=== PATIENT | male | born 1945 | race Caucasian/White ===

== ENCOUNTER 2019-06-21 12:28 | Inpatient (IN) ==
--- NOTE | 2019-06-21 12:43 | Emergency Department Note ---
Altered Mental Status HPI - General Chief Complaint: Altered Mental Status Stated Complaint: Reduced LOC Time Seen by Provider: 06/21/19 12:32 Source: patient Mode of arrival: ambulatory Limitations: no limitations - History of Present Illness HPI Narrative: 74-year-old male with known history of dementia comes in from [facility] ([facility]for 3 weeks of altered mental status-decreased level of consciousness. He is currently getting doxycycline for cellulitis of the right foot. I am unable to get any meaningful history or review of systems from this patient-is very difficult to arouse but is breathing on his own with adequate heartbeat. He was able to answer one question for me after I did a sternal rub to wake him up but the answer was nonsensical. He is also on Depakote and Ativan. Medical records indicate that he is an elopement risk and does normally walk - Related Data Home Medications Medication Instructions Recorded Confirmed Acetaminophen [Non-Aspirin] 650 mg PO Q4HP PRN 06/21/19 06/21/19 Bisacodyl 10 mg RC PRN PRN 06/21/19 06/21/19 Divalproex Sodium [Depakote] 500 mg PO TID 06/21/19 06/21/19 Docusate Sodium [Colace] 100 mg PO BID 06/21/19 06/21/19 Docusate Sodium [Colace] 100 mg PO DAILYP PRN 06/21/19 06/21/19 Donepezil [Aricept] 5 mg PO HS 06/21/19 06/21/19 Doxycycline Hyclate [Morgidox] 100 mg PO BID 06/21/19 06/21/19 Ibuprofen [Advil] 400 mg PO Q6 PRN 06/21/19 06/21/19 LORazepam [Ativan] 1 mg PO BID 06/21/19 06/21/19 Magnesium Hydroxide [Milk of 30 ml PO DAILYP PRN 06/21/19 06/21/19 Magnesia] Multivitamin,Therapeutic [Thera] 1 tab PO DAILY 06/21/19 06/21/19 oxyCODONE HCL [Oxycodone HCl] 5 mg PO BID 06/21/19 06/21/19 traZODone HCL [Trazodone HCl] 50 mg PO HS 06/21/19 06/21/19 Allergies Allergy/AdvReac Type Severity Reaction Status Date / Time No Known Drug Allergies Allergy Unverified 06/21/19 12:42 Review of Systems Limitations: ROS unobtainable due to patients medical condition Past Medical History - Past Medical History Attestation: Yes: The following information was validated with the patient. [facility] Narrative: From records sent from the nursing facility he does have chronic constipation dementia with behavioral issues cellulitis of the right foot. I do not see record of diabetes or heart issues Source: old records reviewed - Social History smoking status: Former smoker Physical Exam No acute distress sleeping. Very difficult to arouse. I pried open his eyes manually-he does have some crusty discharge around the right eye but the conjunctiva looks clear bilaterally. Extraocular movements are intact I do not see any nystagmus. Pupils are equal But are small. No nasal discharge or congestion. I cannot get him to open mouth so I can look at his throat. Neck is supple without lymphadenopathy or thyromegaly. I do not hear carotid bruit. Heart is regular rate and rhythm no murmur appreciated. Lungs are clear to auscultation bilaterally without wheezes rales rhonchi or respiratory distress. Abdomen is soft nontender nondistended. There is no peritoneal signs or guarding. Adequate bowel sounds. He does have +1 pitting edema to about the mid alonso bilaterally. There is some mild erythema to the dorsum of the right foot but I do not see evidence of abscess. I cannot get any meaningful information from him. I can get him to wake up with aggressive measures but he is nonsensical and does not respond to stimulation. The bottoms of the feet are dirty signifying that he is recently been outside walking. Additionally he has a superficial abrasion at his right proximal forearm extensor surface which does not require repair-this looks recent Limitations: no limitations Coma Scale Eye Opening: None Coma Scale Motor Response: Localizes to Pain Coma Scale Verbal Response: Inappropriate Coma Scale Total: 9 Course Vital Signs Temperature 98.1 F 06/21/19 12:30 Respiratory Rate 18 06/21/19 12:30 Blood Pressure 154/82 06/21/19 12:30 Pulse Oximetry (%) 96 06/21/19 12:30 Temperature 98.1 F 06/21/19 12:30 Pulse Rate 77 06/21/19 14:01 Respiratory Rate 22 06/21/19 12:35 Blood Pressure 137/99 06/21/19 15:03 Pulse Oximetry (%) 95 06/21/19 14:01 Altered Mental Status - Lab Data Lab results reviewed: Yes I reviewed the patient's lab results. Result diagrams: 06/21/19 12:52 06/21/19 12:52 Lab Results 06/21/19 06/21/19 06/21/19 Range/Units 12:52 12:52 12:52 WBC 8.7 (4.5-11.0) K/mcL RBC 3.64 L (4.50-5.90) M/mcL Hgb 12.0 L (13.5-16.5) g/dL Hct 35.5 L (41.0-55.0) % POC Hct 35.0 L (41.0-55.0) % MCV 97.6 (80.0-100.0) fL MCH 33.0 (26.0-34.0) pg MCHC 33.8 (31.0-36.0) g/dL RDW 13.1 (11.5-14.5) % Plt Count 284 (140-440) K/mcL MPV 8.5 (7.4-10.4) fL Gran % 82.8 H (38.0-78.0) % Lymph % (Auto) 7.5 L (15.5-49.0) % [place] % (Auto) 9.3 (1.0-12.0) % Eos % (Auto) 0.1 (0.0-7.0) % Baso % (Auto) 0.3 (0.0-2.0) % Gran # 7.2 (1.8-8.0) K/mcL Lymph # (Auto) 0.7 L (1.5-4.8) K/mcL [place] # (Auto) 0.8 (0.1-0.9) K/mcL Eos # (Auto) 0 (0.0-0.7) K/mcL Baso # (Auto) 0 (0.0-0.3) K/mcL POC PT 16.4 H (11.9-14.5) sec POC INR 1.4 H (0.9-1.2) VBG Lactic Acid (0.5-2.0) mmol/L POC Sodium 145 (133-145) mmol/L Sodium 146 H (133-145) mmol/L POC Potassium 3.7 (3.3-5.1) mmol/L Potassium 3.8 (3.3-5.1) mmol/L POC Chloride 107 (96-108) mmol/L Chloride 105 (96-108) mmol/L Carbon Dioxide 23 (22-30) mmol/L POC Total CO2 25 (22-30) mmol/L Anion Gap 18.0 H (8-16) POC BUN 38 H (8-23) mg/dl BUN 40 H (8-23) mg/dl Creatinine 1.1 (0.7-1.2) mg/dl POC Creatinine 1.1 (0.7-1.2) mg/dl GFR Calculation 65 Glucose 129 H (70-105) mg/dL POC Glucose 129 H (70-105) mg/dL Calcium 9.3 (8.6-10.4) mg/dl POC WB Ioniz Calcium 1.15 L (1.16-1.32) mmol/L Total Bilirubin 0.3 (0.0-1.0) mg/dL AST 54 H (0-37) U/l ALT 24 (0-40) U/l Alkaline Phosphatase 75 (39-117) U/L Ammonia (16-60) umol/L Total Creatine Kinase 1509 H (24-195) IU/L Troponin T (0-0.03) ng/ml NT-Pro-B Natriuret Pep (0-450) pg/ml Total Protein 7.0 (5.9-8.4) gm/dL Albumin 4.1 (3.2-5.2) gm/dL Globulin 2.9 (2.2-3.7) gm/dL Albumin/Globulin Ratio 1.4 (1.0-2.3) Urine Color Urine Appearance Urine pH (5.0-9.0) Ur Specific [place] (1.000-1.035) Urine Protein (NEG) mg/dL Urine Glucose (UA) (NEG) mg/dL Urine Ketones (NEG) mg/dL Urine Occult Blood (<0.03) mg/dL Urine Nitrate (NEG) Urine Bilirubin (NEG) mg/dL Prot Sulfosalicylic Acd (NEG) mg/dL Urine Urobilinogen (NEG) mg/dL Ur Leukocyte Esterase (NEG) /uL Urine RBC (0-1) /hpf Urine WBC (0-4) /hpf Ur Squamous Epith Cells (0-4) /hpf Urine Bacteria (0) /hpf Urine Mucus (0) /hpf Ur Culture Indicated? Urine Opiates Screen (NONDETECTED) Ur Oxycodone Screen (NONDETECTED) Urine Methadone Screen (NONDETECTED) Ur Barbiturates Screen (NONDETECTED) Valproic Acid ug/mL Valproic Acid Dose Valpro Last Dose Time Ur Phencyclidine Scrn (NONDETECTED) Ur Amphetamines Screen (NONDETECTED) U Benzodiazepines Scrn (NONDETECTED) Urine Cocaine Screen (NONDETECTED) U Marijuana (THC) Screen (NONDETECTED) Ethyl Alcohol (<0.010) gm/dl 06/21/19 06/21/19 06/21/19 Range/Units 12:52 12:52 12:52 WBC (4.5-11.0) K/mcL RBC (4.50-5.90) M/mcL Hgb (13.5-16.5) g/dL Hct (41.0-55.0) % POC Hct (41.0-55.0) % MCV (80.0-100.0) fL MCH (26.0-34.0) pg MCHC (31.0-36.0) g/dL RDW (11.5-14.5) % Plt Count (140-440) K/mcL MPV (7.4-10.4) fL Gran % (38.0-78.0) % Lymph % (Auto) (15.5-49.0) % [place] % (Auto) (1.0-12.0) % Eos % (Auto) (0.0-7.0) % Baso % (Auto) (0.0-2.0) % Gran # (1.8-8.0) K/mcL Lymph # (Auto) (1.5-4.8) K/mcL [place] # (Auto) (0.1-0.9) K/mcL Eos # (Auto) (0.0-0.7) K/mcL Baso # (Auto) (0.0-0.3) K/mcL POC PT (11.9-14.5) sec POC INR (0.9-1.2) VBG Lactic Acid 1.8 (0.5-2.0) mmol/L POC Sodium (133-145) mmol/L Sodium (133-145) mmol/L POC Potassium (3.3-5.1) mmol/L Potassium (3.3-5.1) mmol/L POC Chloride (96-108) mmol/L Chloride (96-108) mmol/L Carbon Dioxide (22-30) mmol/L POC Total CO2 (22-30) mmol/L Anion Gap (8-16) POC BUN (8-23) mg/dl BUN (8-23) mg/dl Creatinine (0.7-1.2) mg/dl POC Creatinine (0.7-1.2) mg/dl GFR Calculation Glucose (70-105) mg/dL POC Glucose (70-105) mg/dL Calcium (8.6-10.4) mg/dl POC WB Ioniz Calcium (1.16-1.32) mmol/L Total Bilirubin (0.0-1.0) mg/dL AST (0-37) U/l ALT (0-40) U/l Alkaline Phosphatase (39-117) U/L Ammonia 24 (16-60) umol/L Total Creatine Kinase (24-195) IU/L Troponin T < 0.01 (0-0.03) ng/ml NT-Pro-B Natriuret Pep (0-450) pg/ml Total Protein (5.9-8.4) gm/dL Albumin (3.2-5.2) gm/dL Globulin (2.2-3.7) gm/dL Albumin/Globulin Ratio (1.0-2.3) Urine Color Urine Appearance Urine pH (5.0-9.0) Ur Specific [place] (1.000-1.035) Urine Protein (NEG) mg/dL Urine Glucose (UA) (NEG) mg/dL Urine Ketones (NEG) mg/dL Urine Occult Blood (<0.03) mg/dL Urine Nitrate (NEG) Urine Bilirubin (NEG) mg/dL Prot Sulfosalicylic Acd (NEG) mg/dL Urine Urobilinogen (NEG) mg/dL Ur Leukocyte Esterase (NEG) /uL Urine RBC (0-1) /hpf Urine WBC (0-4) /hpf Ur Squamous Epith Cells (0-4) /hpf Urine Bacteria (0) /hpf Urine Mucus (0) /hpf Ur Culture Indicated? Urine Opiates Screen (NONDETECTED) Ur Oxycodone Screen (NONDETECTED) Urine Methadone Screen (NONDETECTED) Ur Barbiturates Screen (NONDETECTED) Valproic Acid ug/mL Valproic Acid Dose Valpro Last Dose Time Ur Phencyclidine Scrn (NONDETECTED) Ur Amphetamines Screen (NONDETECTED) U Benzodiazepines Scrn (NONDETECTED) Urine Cocaine Screen (NONDETECTED) U Marijuana (THC) Screen (NONDETECTED) Ethyl Alcohol (<0.010) gm/dl 06/21/19 06/21/19 06/21/19 Range/Units 12:52 12:52 12:52 WBC (4.5-11.0) K/mcL RBC (4.50-5.90) M/mcL Hgb (13.5-16.5) g/dL Hct (41.0-55.0) % POC Hct (41.0-55.0) % MCV (80.0-100.0) fL MCH (26.0-34.0) pg MCHC (31.0-36.0) g/dL RDW (11.5-14.5) % Plt Count (140-440) K/mcL MPV (7.4-10.4) fL Gran % (38.0-78.0) % Lymph % (Auto) (15.5-49.0) % [place] % (Auto) (1.0-12.0) % Eos % (Auto) (0.0-7.0) % Baso % (Auto) (0.0-2.0) % Gran # (1.8-8.0) K/mcL Lymph # (Auto) (1.5-4.8) K/mcL [place] # (Auto) (0.1-0.9) K/mcL Eos # (Auto) (0.0-0.7) K/mcL Baso # (Auto) (0.0-0.3) K/mcL POC PT (11.9-14.5) sec POC INR (0.9-1.2) VBG Lactic Acid (0.5-2.0) mmol/L POC Sodium (133-145) mmol/L Sodium (133-145) mmol/L POC Potassium (3.3-5.1) mmol/L Potassium (3.3-5.1) mmol/L POC Chloride (96-108) mmol/L Chloride (96-108) mmol/L Carbon Dioxide (22-30) mmol/L POC Total CO2 (22-30) mmol/L Anion Gap (8-16) POC BUN (8-23) mg/dl BUN (8-23) mg/dl Creatinine (0.7-1.2) mg/dl POC Creatinine (0.7-1.2) mg/dl GFR Calculation Glucose (70-105) mg/dL POC Glucose (70-105) mg/dL Calcium (8.6-10.4) mg/dl POC WB Ioniz Calcium (1.16-1.32) mmol/L Total Bilirubin (0.0-1.0) mg/dL AST (0-37) U/l ALT (0-40) U/l Alkaline Phosphatase (39-117) U/L Ammonia (16-60) umol/L Total Creatine Kinase (24-195) IU/L Troponin T (0-0.03) ng/ml NT-Pro-B Natriuret Pep (0-450) pg/ml Total Protein (5.9-8.4) gm/dL Albumin (3.2-5.2) gm/dL Globulin (2.2-3.7) gm/dL Albumin/Globulin Ratio (1.0-2.3) Urine Color Urine Appearance Urine pH (5.0-9.0) Ur Specific [place] (1.000-1.035) Urine Protein (NEG) mg/dL Urine Glucose (UA) (NEG) mg/dL Urine Ketones (NEG) mg/dL Urine Occult Blood (<0.03) mg/dL Urine Nitrate (NEG) Urine Bilirubin (NEG) mg/dL Prot Sulfosalicylic Acd (NEG) mg/dL Urine Urobilinogen (NEG) mg/dL Ur Leukocyte Esterase (NEG) /uL Urine RBC (0-1) /hpf Urine WBC (0-4) /hpf Ur Squamous Epith Cells (0-4) /hpf Urine Bacteria (0) /hpf Urine Mucus (0) /hpf Ur Culture Indicated? Urine Opiates Screen None detected (NONDETECTED) Ur Oxycodone Screen Suspect positive A (NONDETECTED) Urine Methadone Screen None detected (NONDETECTED) Ur Barbiturates Screen None detected (NONDETECTED) Valproic Acid 53.5 ug/mL Valproic Acid Dose Not Reportable Valpro Last Dose Time Not Reportable Ur Phencyclidine Scrn None detected (NONDETECTED) Ur Amphetamines Screen None detected (NONDETECTED) U Benzodiazepines Scrn None detected (NONDETECTED) Urine Cocaine Screen None detected (NONDETECTED) U Marijuana (THC) Screen None detected (NONDETECTED) Ethyl Alcohol < 0.010 (<0.010) gm/dl 06/21/19 06/21/19 Range/Units 12:52 12:52 WBC (4.5-11.0) K/mcL RBC (4.50-5.90) M/mcL Hgb (13.5-16.5) g/dL Hct (41.0-55.0) % POC Hct (41.0-55.0) % MCV (80.0-100.0) fL MCH (26.0-34.0) pg MCHC (31.0-36.0) g/dL RDW (11.5-14.5) % Plt Count (140-440) K/mcL MPV (7.4-10.4) fL Gran % (38.0-78.0) % Lymph % (Auto) (15.5-49.0) % [place] % (Auto) (1.0-12.0) % Eos % (Auto) (0.0-7.0) % Baso % (Auto) (0.0-2.0) % Gran # (1.8-8.0) K/mcL Lymph # (Auto) (1.5-4.8) K/mcL [place] # (Auto) (0.1-0.9) K/mcL Eos # (Auto) (0.0-0.7) K/mcL Baso # (Auto) (0.0-0.3) K/mcL POC PT (11.9-14.5) sec POC INR (0.9-1.2) VBG Lactic Acid (0.5-2.0) mmol/L POC Sodium (133-145) mmol/L Sodium (133-145) mmol/L POC Potassium (3.3-5.1) mmol/L Potassium (3.3-5.1) mmol/L POC Chloride (96-108) mmol/L Chloride (96-108) mmol/L Carbon Dioxide (22-30) mmol/L POC Total CO2 (22-30) mmol/L Anion Gap (8-16) POC BUN (8-23) mg/dl BUN (8-23) mg/dl Creatinine (0.7-1.2) mg/dl POC Creatinine (0.7-1.2) mg/dl GFR Calculation Glucose (70-105) mg/dL POC Glucose (70-105) mg/dL Calcium (8.6-10.4) mg/dl POC WB Ioniz Calcium (1.16-1.32) mmol/L Total Bilirubin (0.0-1.0) mg/dL AST (0-37) U/l ALT (0-40) U/l Alkaline Phosphatase (39-117) U/L Ammonia (16-60) umol/L Total Creatine Kinase (24-195) IU/L Troponin T (0-0.03) ng/ml NT-Pro-B Natriuret Pep 124.9 (0-450) pg/ml Total Protein (5.9-8.4) gm/dL Albumin (3.2-5.2) gm/dL Globulin (2.2-3.7) gm/dL Albumin/Globulin Ratio (1.0-2.3) Urine Color [place] Urine Appearance Clear Urine pH 5.0 (5.0-9.0) Ur Specific [place] 1.033 (1.000-1.035) Urine Protein Color interference (NEG) mg/dL Urine Glucose (UA) Negative (NEG) mg/dL Urine Ketones 80 A (NEG) mg/dL Urine Occult Blood Neg (<0.03) mg/dL Urine Nitrate Neg (NEG) Urine Bilirubin Neg (NEG) mg/dL Prot Sulfosalicylic Acd Neg (NEG) mg/dL Urine Urobilinogen Color interference (NEG) mg/dL Ur Leukocyte Esterase Neg (NEG) /uL Urine RBC 8 H (0-1) /hpf Urine WBC < 1 (0-4) /hpf Ur Squamous Epith Cells 0 (0-4) /hpf Urine Bacteria 0 (0) /hpf Urine Mucus Many A (0) /hpf Ur Culture Indicated? No Urine Opiates Screen (NONDETECTED) Ur Oxycodone Screen (NONDETECTED) Urine Methadone Screen (NONDETECTED) Ur Barbiturates Screen (NONDETECTED) Valproic Acid ug/mL Valproic Acid Dose Valpro Last Dose Time Ur Phencyclidine Scrn (NONDETECTED) Ur Amphetamines Screen (NONDETECTED) U Benzodiazepines Scrn (NONDETECTED) Urine Cocaine Screen (NONDETECTED) U Marijuana (THC) Screen (NONDETECTED) Ethyl Alcohol (<0.010) gm/dl - Radiology Data Radiology results reviewed: Yes I reviewed the patient's radiology results. CT scan of the head and chest x-ray showed no acute pathology - EKG Data EKG attestation: Yes I reviewed and interpreted this EKG., Yes There are no EKG findings of acute coronary syndrome, Yes This EKG will be read by topographical field assistant EKG results narrative: EKG shows a rate 87 sinus rhythm with flipped T waves in lead III Disposition Pt seen by [facility]/PA only: No Clinical Impression: Altered mental status Qualifiers: Altered mental status type: somnolence Qualified Code(s): R40.0 - Somnolence Rhabdomyolysis Qualifiers: Rhabdomyolysis type: non-traumatic Qualified Code(s): M62.82 - Rhabdomyolysis Dementia Qualifiers: Dementia type: unspecified type Dementia behavioral disturbance: with behavioral disturbance Qualified Code(s): F03.91 - Unspecified dementia with behavioral disturbance Narcotic overdose Qualifiers: Encounter type: initial encounter Injury intent: accidental or unintentional Qualified Code(s): T40.601A - Poisoning by unspecified narcotics, accidental (unintentional), initial encounter Summary: Acutely somnolent and barely responsive with a GCS of 9. He is breathing on his own with an adequate heartbeat. Suspect stroke versus acute infection like pneumonia or UTI versus alcohol withdrawal versus narcotic or Depakote overdose. Work-up ordered. Trial of Narcan. IV fluids Narcan 0.2 mg did not help much but this is equivocal. We were able to place Weeks catheter but urinalysis was negative. Urine is dark brown. He did respond to blood draw but again was nonsensical but purposely moved. We will try a higher dose of Narcan 0.4 mg. Was negative for acute pathology. UDS is positive for oxycodone. Valproic acid level was low therapeutic. Labs not consistent with sepsis, neither or vitals. However his CK is elevated consistent with possible rhabdo. His exam shows possible fluid overload with some lymphedema. We will give dose of Lasix Second dose of Narcan seem to wake him up again but they were able to redirect him. He continues to be otherwise stable We will discuss case with hospitalist as he will require IV fluids for rhabdomyolysis and monitoring of his altered mental status. Dr. Wallace accepted patient for further care and evaluation here Disposition: Xfer As Inpt ([facility]) Condition: Fair Referrals: Margret Wright MD [Physician] -
[2019-06-21] MEDS ORDERED: NALOXONE HCL 0.4 MG/ML VIAL IV ONE ×2 (12:45→14:10)
[2019-06-21] MEDS ORDERED: 0.9 % SODIUM CHLORIDE 1,000 ML IV SCH ×3 (12:45→15:45)
[2019-06-21 13:16] LABS: POC Blood Urea Nitrogen 38 mg/dl (8-23); POC CO2 25 mmol/L (22-30); POC Calcium, Ionized 1.15 mmol/L (1.16-1.32); POC Chloride 107 mmol/L (96-108); POC Creatinine 1.1 mg/dl (0.7-1.2); POC Glucose, Random 129 mg/dL (70-105); POC Potassium 3.7 mmol/L (3.3-5.1); POC Sodium 145 mmol/L (133-145)
[2019-06-21 13:17] LABS: POC INR 1.4 (0.9-1.2); POC Pro Time 16.4 sec (11.9-14.5)
--- NOTE | 2019-06-21 13:36 | Cat Scan Report ---
CLINICAL INFORMATION: History of dementia. Altered mental status TECHNIQUE: Axial noncontrast enhanced images through the brain. Sagittal and coronal reformatted images COMPARISON: Previous MRI scan dated 10/06/2016 FINDINGS: There is cerebral atrophy with prominent superficial subarachnoid spaces and ventricles. No acute intra-axial hemorrhage. No focal intra-axial attenuation abnormality. No localized mass effect. No midline shift. Brainstem and cerebellum are negative. No extra-axial or common intracranial abnormality. No subdural hematoma. No subarachnoid hemorrhage. Basilar cisterns are normal. No calvarial lesions. No fracture. No lytic lesion. Temporal bones are negative. Paranasal sinuses are negative IMPRESSION: 1. Cerebral atrophy 2. No acute intracranial hemorrhage. 3. No acute or focal abnormality. No significant interval change since MRI scan dated 10/06/2016 Interpreted and Authenticated by: Clifford Laws 06/21/19
--- NOTE | 2019-06-21 13:37 | XRay Report ---
INDICATION: Altered mental status TECHNIQUE: AP chest x-ray,portable semiupright COMPARISON: None FINDINGS:Lungs are negative. No parenchymal infiltrate or mass. No focal pulmonary parenchymal abnormality. Heart size and vascularity are normal. Sanjuana and mediastinum are negative. No pulmonary edema or pulmonary congestion. IMPRESSION: Negative AP chest x-ray Interpreted and Authenticated by: Clifford Laws 06/21/19
[2019-06-21 13:50] LABS: Basophils # (Auto) 0 K/mcL (0.0-0.3); Basophils % (Auto) 0.3 % (0.0-2.0); Eosinophils # (Auto) 0 K/mcL (0.0-0.7); Eosinophils % (Auto) 0.1 % (0.0-7.0); Granulocytes % (Auto) 82.8 % (38.0-78.0); Hematocrit 35.5 % (41.0-55.0); Lymphocytes # (Auto) 0.7 K/mcL (1.5-4.8); Lymphocytes % (Auto) 7.5 % (15.5-49.0); Mean Cell Volume 97.6 fL (80.0-100.0); Mean Corpuscular HGB Conc 33.8 g/dL (31.0-36.0); Mean Platelet Volume 8.5 fL (7.4-10.4); Monocytes # (Auto) 0.8 K/mcL (0.1-0.9); Monocytes % (Auto) 9.3 % (1.0-12.0); Platelet Count 284 K/mcL (140-440); RBC 3.64 M/mcL (4.50-5.90); Red Cell Distribution Width 13.1 % (11.5-14.5); WBC 8.7 K/mcL (4.5-11.0)
[2019-06-21 13:56] LABS: Appearance,Urine CLEAR; Bacteria,Urine 0 /hpf (0); Bilirubin,Urine NEG (NEG); Color,Urine AMBER; Culture Indicated,Urine NO; Glucose,Urine (UA) NEGATIVE (NEG); Ketones,Urine 80 mg/dL (NEG); Leukocyte Esterase,Urine NEG /uL (NEG); Mucus,Urine MANY /hpf (0); Nitrate,Urine NEG (NEG); Protein,Urine COLOR INTERFERENCE mg/dL (NEG); Specific Gravity,Urine 1.033 (1.000-1.035); Sulfosalicylic Acid,Urine NEG (NEG); Urine Blood NEG mg/dL (<0.03); Urine RBC 8 /hpf (0-1); Urine Squamous Epithelial Cell 0 /hpf (0-4); Urine WBC < 1 /hpf (0-4); Urobilinogen,Urine COLOR INTERFERENCE mg/dL (NEG)
[2019-06-21 13:58] LABS: Amphetamine Screen,Urine NONE DETECTED (NONDETECTED); Barbiturate Screen,Urine NONE DETECTED (NONDETECTED); Benzodiazepines Screen,Urine NONE DETECTED (NONDETECTED); Cannabinoid Screen,Urine NONE DETECTED (NONDETECTED); Cocaine Screen,Urine NONE DETECTED (NONDETECTED); Opiate Screen,Urine NONE DETECTED (NONDETECTED); Oxycodone, Urine Screen SUSPECT POSITIVE (NONDETECTED); Phencyclidine Screen,Urine NONE DETECTED (NONDETECTED)
[2019-06-21 14:17] LABS: ALT/SGPT 24 U/l (0-40); AST/SGOT 54 U/l (0-37); Albumin 4.1 gm/dL (3.2-5.2); Albumin/Globulin Ratio 1.4 (1.0-2.3); Alcohol, Blood < 10.0 mg/dL (<10); Alcohol,Blood < 0.010 gm/dl (<0.010); Alkaline Phosphatase 75 U/L (39-117); Bilirubin,Total 0.3 mg/dL (0.0-1.0); Blood Urea Nitrogen 40 mg/dl (8-23); Calcium 9.3 mg/dl (8.6-10.4); Carbon Dioxide 23 mmol/L (22-30); Chloride 105 mmol/L (96-108); Creatine Kinase 1509 IU/L (24-195); Globulin 2.9 gm/dL (2.2-3.7); Glomerular Filtration Rate 65; Glucose 129 mg/dL (70-105)
[2019-06-21] MEDS ORDERED: FUROSEMIDE 100 MG/10 ML VIAL IV ONE (14:32)
[2019-06-21 14:52] LABS: proBNP 124.9 pg/ml (0-450)
[2019-06-21] MEDS ORDERED: LORazepam 2 MG/ML VIAL IV ONE (15:02)
[2019-06-21] MEDS ORDERED: LORazepam 2 MG/ML VIAL ONE (15:04)
[2019-06-21] MEDS ORDERED: SODIUM BICARBONATE 50 MEQ/50 ML VIAL ONE (15:47)
--- NOTE | 2019-06-21 15:51 | Internal Med History&Physical ---
Medical - H&P: HPI Patient information: Note initiated : 06/21/19 at 3:44 pm Service Date, if different from initiated Date: [] Patient: Raad Gonsalez 74 y/o M admitted on for Reduced LOC. Chief Complaint: [] History of present illness: Mr. Gonsalez is a 74 year old M Presents the ED with altered mental status. Sent in from [facility]. History is obtained from charts and staff as patient is unable to give any history given his current state and superimposed Alzheimer's dementia. Per notes patient has been declining for 3 weeks at poor mental status. Is currently getting doxycycline for cellulitis of the dorsum of his right foot. Medical records he is an elopement risk and normally walks.. He was maintaining airway and his vital signs are stable. He is given several dose of Narcan. The initial 0.2 mg dose did not do much but the subsequent 4.4 mg did work well. Work-up in the ED showed a BUN 40 with creatinine 1.1 and elevated CK 1500 with urinalysis showing ketones. He was seen at [facility] on the for confusion and agitation. Work-up was unremarkable. The provider did want to obtain an MRI but was concerned given the patient's agitation whether or not he would hold still. The case was discussed with the power of reconnaissance man who did not wish to sedate the patient for MRI. It was presented to the power of reconnaissance man that if this was a stroke that he would likely have a poor outcome. The power of reconnaissance man what was aware of this and he did not want any aggressive measures. Patient was given a prescription for risperidone and Ativan both which are new medications. The medication list that he presented with showed olanzapine and oxycodone as well as Depakote. In the ED D became more responsive but unable to communicate with the patient. Therefore unable to gather a review of systems. No pressure ulcers noted in the ED but abrasion to the right arm noted. Medical - H&P: PMH Medical history: Past medical history: Alzheimer's dementia Chronic pain Anxiety Past surgical history: Total knee arthroplasty from note Family history: Unable to obtain Social: Per notes no history of smoking or alcohol Is a [facility] Medical - H&P: Meds Home Medications Medication Instructions Recorded Confirmed Type Acetaminophen [Non-Aspirin] 650 mg PO Q4HP PRN 06/21/19 06/21/19 History Bisacodyl 10 mg RC PRN PRN 06/21/19 06/21/19 History Divalproex Sodium [Depakote] 500 mg PO TID 06/21/19 06/21/19 History Docusate Sodium [Colace] 100 mg PO BID 06/21/19 06/21/19 History Docusate Sodium [Colace] 100 mg PO DAILYP PRN 06/21/19 06/21/19 History Donepezil [Aricept] 5 mg PO HS 06/21/19 06/21/19 History Doxycycline Hyclate [Morgidox] 100 mg PO BID 06/21/19 06/21/19 History Ibuprofen [Advil] 400 mg PO Q6 PRN 06/21/19 06/21/19 History LORazepam [Ativan] 1 mg PO BID 06/21/19 06/21/19 History Magnesium Hydroxide [Milk of 30 ml PO DAILYP PRN 06/21/19 06/21/19 History Magnesia] Multivitamin,Therapeutic [Thera] 1 tab PO DAILY 06/21/19 06/21/19 History oxyCODONE HCL [Oxycodone HCl] 5 mg PO BID 06/21/19 06/21/19 History traZODone HCL [Trazodone HCl] 50 mg PO HS 06/21/19 06/21/19 History Allergies Allergy/AdvReac Type Severity Reaction Status Date / Time No Known Drug Allergies Allergy Unverified 06/21/19 12:42 Medical - H&P: Exam - Constitutional Vitals: Temp Pulse Resp BP Pulse Ox 98.1 F 77 22 143/76 95 06/21/19 12:30 06/21/19 14:01 06/21/19 12:35 06/21/19 15:16 06/21/19 14:01 Exam: General: Drowsy but awakens, No acute Distress Eyes/N/T: EOMI, PEERL, Head/Neck: neck supple, normocephalic atraumatic CV: RRR, No murmurs, normal s1/s2 Pulm: Clear b/l, no wheezing/rhonchi/rales Abd: soft, nontender, +BS x4 Ext: no clubbing/cyanosis/edema, 1+ b/l LE edema Neuro: Drowsy, does not cooperate with exam, moves all extremities spontaneously. Response to touch extremities skin: warm/dry, abrasion to right forearm Medical - H&P: Reslt - Labs CBC & Chem 7: 06/21/19 12:52 06/21/19 12:52 Labs: Short CBC 06/21/19 Range/Units 12:52 WBC 8.7 (4.5-11.0) K/mcL Hgb 12.0 L (13.5-16.5) g/dL Hct 35.5 L (41.0-55.0) % Plt Count 284 (140-440) K/mcL BMP 06/21/19 12:52 Sodium 146 H Potassium 3.8 Chloride 105 Carbon Dioxide 23 BUN 40 H Creatinine 1.1 Glucose 129 H Calcium 9.3 Cardiac Enzymes 06/21/19 06/21/19 Range/Units 12:52 12:52 Total Creatine Kinase 1509 H (24-195) IU/L Troponin T < 0.01 (0-0.03) ng/ml Liver Function 06/21/19 Range/Units 12:52 Total Bilirubin 0.3 (0.0-1.0) mg/dL AST 54 H (0-37) U/l ALT 24 (0-40) U/l Alkaline Phosphatase 75 (39-117) U/L Albumin 4.1 (3.2-5.2) gm/dL Urine 06/21/19 Range/Units 12:52 Urine Color [place] Urine Appearance Clear Urine pH 5.0 (5.0-9.0) Ur Specific [place] 1.033 (1.000-1.035) Urine Protein Color interference (NEG) mg/dL Urine Glucose (UA) Negative (NEG) mg/dL - Impressions Chest x-ray unremarkable CT of the brain showed cerebral atrophy no acute pathology Medical - H&P: A/P - Narrative A/P Narrative: A: *Encephalopathy (stupor): responded to narcan reasonably, but believe ativan being culprit as well -ativan and risperidone started 10 days ago *General decline as of late: *Volume depletion: *Rhabdomyolysis: Renal function wnl at this time -no wounds or pressure ulcers noted, but does have significant abrasion to right arm *Alzheimer's dementia: Has been on olanzapine in the recent past as well as Depakote *Anxiety: *Chronic pain: *Cellulitis of the right foot: Currently on doxycycline P: -Hold sedative medications, especially Ativan and narcotics -IVF -Follow-up CK -Clarify home medications -CM -pt/ot -ppx: lovenox code status-
[2019-06-21] MEDS: SODIUM BICARBONATE 50 MEQ/50 ML VIAL IV ONE ×2 (15:53→15:55)
[2019-06-21] MEDS ORDERED: POLYETHYLENE GLYCOL 3350 17 GM PACKET PO PRN (16:53)
[2019-06-21] MEDS ORDERED: IPRATROPIUM/ALBUTEROL 3 ML AMPUL.NEB NEB PRN (16:53)
[2019-06-21] MEDS ORDERED: ONDANSETRON 4 MG/2 ML VIAL IV PRN (16:53)
[2019-06-21] MEDS ORDERED: SENNOSIDES 1 TABLET PO PRN (16:53)
[2019-06-21] MEDS ORDERED: NALOXONE HCL 0.4 MG/ML VIAL IV PRN (16:53)
[2019-06-21] MEDS ORDERED: ACETAMINOPHEN 325 MG TABLET PO PRN (16:53)
[2019-06-21] MEDS ORDERED: PROMETHAZINE 25 MG TABLET PO PRN (16:53)
[2019-06-21] MEDS ORDERED: POTASSIUM CHLORIDE 40 MEQ in DEXTROSE 5% IN WATER 500 ML IV PRN (16:53)
[2019-06-21] MEDS ORDERED: MAGNESIUM SULFATE 2 GM/50 ML BAG IV PRN (16:53)
[2019-06-21] MEDS ORDERED: METOCLOPRAMIDE 10 MG/2 ML VIAL IV PRN (16:53)
[2019-06-21] MEDS ORDERED: POTASSIUM CHLORIDE 20 MEQ TABLET PO PRN ×2 (16:53)
[2019-06-21] MEDS: 0.9 % SODIUM CHLORIDE 1,000 ML IV SCH ×2 (17:00→22:50)
[2019-06-21] MEDS ORDERED: DOCUSATE SODIUM 100 MG CAPSULE PO SCH (21:00)
[2019-06-21] MEDS ORDERED: BISACODYL 10 MG SUPP.RECT PR PRN (21:45)
[2019-06-21] MEDS: 0.9 % SODIUM CHLORIDE 10 ML SYRINGE IV SCH (21:48)
[2019-06-21] MEDS: FAMOTIDINE/PF 20 MG/2 ML VIAL IV SCH (22:50)
[2019-06-21] MEDS: DOXYCYCLINE HYCLATE 100 MG TABLET.ORL PO SCH (23:19)
[2019-06-21] MEDS: DOCUSATE SODIUM 100 MG CAPSULE PO SCH (23:19)
[2019-06-21] MEDS: DIVALPROEX 125 MG CAP.SPRINK PO SCH (23:19)
[2019-06-21] MEDS: DONEPEZIL 10 MG TABLET PO SCH (23:19)
[2019-06-22] MEDS: 0.9 % SODIUM CHLORIDE 10 ML SYRINGE IV SCH ×2 (05:42→22:51)
[2019-06-22 05:49] LABS: Basophils # (Auto) 0 K/mcL (0.0-0.3); Basophils % (Auto) 0 % (0.0-2.0); Eosinophils # (Auto) 0.1 K/mcL (0.0-0.7); Eosinophils % (Auto) 1.1 % (0.0-7.0); Granulocytes % (Auto) 75.5 % (38.0-78.0); Hematocrit 36.8 % (41.0-55.0); Hemoglobin 12.4 g/dL (13.5-16.5); Lymphocytes # (Auto) 1.2 K/mcL (1.5-4.8); Lymphocytes % (Auto) 13.7 % (15.5-49.0); Mean Corpuscular HGB Conc 33.6 g/dL (31.0-36.0); Mean Platelet Volume 8.4 fL (7.4-10.4); Monocytes # (Auto) 0.9 K/mcL (0.1-0.9); Monocytes % (Auto) 9.7 % (1.0-12.0); Platelet Count 263 K/mcL (140-440); RBC 3.72 M/mcL (4.50-5.90); Red Cell Distribution Width 12.9 % (11.5-14.5); WBC 8.9 K/mcL (4.5-11.0)
[2019-06-22 06:24] LABS: ALT/SGPT 22 U/l (0-40); AST/SGOT 54 U/l (0-37); Albumin 3.9 gm/dL (3.2-5.2); Albumin/Globulin Ratio 1.3 (1.0-2.3); Alkaline Phosphatase 73 U/L (39-117); Bilirubin,Direct < 0.2 mg/dL (0.0-0.3); Bilirubin,Total 0.4 mg/dL (0.0-1.0); Blood Urea Nitrogen 28 mg/dl (8-23); Calcium 8.8 mg/dl (8.6-10.4); Carbon Dioxide 28 mmol/L (22-30); Chloride 105 mmol/L (96-108); Creatine Kinase 1397 IU/L (24-195); Globulin 2.9 gm/dL (2.2-3.7); Glomerular Filtration Rate 73; Glucose 117 mg/dL (70-105); Lactate Dehydrogenase 323 U/L (94-250); Phosphorous 2.8 mg/dL (2.7-4.5); Triglycerides 94 mg/dl (<150); Uric Acid 8.6 mg/dL (2.5-8.0)
--- NOTE | 2019-06-22 08:15 | Internal Med Progress Note ---
Medical - PN: Subj Patient information: Note initiated : 06/22/19 at 8:12 am Service Date, if different from initiated Date: [] Patient: Raad Gonsalez 74 y/o M admitted on 06/21/19 for Reduced LOC. Chief Complaint: [] Interval history: Mr. Gonsalez is a 74 year old M Presents the ED with altered mental status. Sent in from [facility]. History is obtained from charts and staff as patient is unable to give any history given his current state and superimposed Alzheimer's dementia. Per notes patient has been declining for 3 weeks at poor mental status. Is currently getting doxycycline for cellulitis of the dorsum of his right foot. Medical records he is an elopement risk and normally walks.. He was maintaining airway and his vital signs are stable. He is given several dose of Narcan. The initial 0.2 mg dose did not do much but the subsequent 4.4 mg did work well. Work-up in the ED showed a BUN 40 with creatinine 1.1 and elevated CK 1500 with urinalysis showing ketones. He was seen at [facility] on the for confusion and agitation. Work-up was unremarkable. The provider did want to obtain an MRI but was concerned given the patient's agitation whether or not he would hold still. The case was discussed with the power of bankruptcy attorney who did not wish to sedate the patient for MRI. It was presented to the power of bankruptcy attorney that if this was a stroke that he would likely have a poor outcome. The power of bankruptcy attorney what was aware of this and he did not want any aggressive measures. Patient was given a prescription for risperidone and Ativan both which are new medications. The medication list that he presented with showed olanzapine and oxycodone as well as Depakote. In the ED D became more responsive but unable to communicate with the patient. Therefore unable to gather a review of systems. No pressure ulcers noted. 06/22 Patient impulsive at times but otherwise no events overnight. Patient nonverbal. When I go in the room with her talking to me occasionally say yes and few other words but they are not usually an accurate response to my questi ons or conversation. Unable to obtain review of systems given advanced dementia - Constitutional Vitals: Vital Signs Temp Pulse Resp BP Pulse Ox 98.4 F 72 20 141/78 98 06/22/19 07:34 06/22/19 04:42 06/22/19 07:34 06/22/19 07:34 06/22/19 07:34 Period Temp Pulse Resp BP Sys/Saldana Pulse Ox Last 24 Hr 97.4 F-98.4 F 72-91 14-22 114-154/60-99 95-100 Intake and Output 06/21/19 06/22/19 06/22/19 21:59 05:59 13:59 Intake Total 1000 1950 Output Total 3350 350 Balance -2350 1600 Weight 104.78 kg Intake & Output: Intake & Output 06/21/19 06/22/19 06/22/19 21:59 05:59 13:59 Intake Total 1000 1950 Output Total 3350 350 Balance -2350 1600 Weight 104.78 kg Intake: IV 1000 1875 Sodium Chloride 0.9% 1,000 ml @ 1000 1875 150 mls/hr IV .Q6H40M [facility] Rx#: [id number] Oral 75 Output: Urine Catheter Amount 3350 350 Other: Urine Appearance Cloudy Cloudy Urine Color Dark Yellow Light Shanti Stool Size Small Stool Color Brown # of times incontinent of 1 Bowels Exam: General: Alert and awake, No acute Distress Eyes/N/T: EOMI, Head/Neck: neck supple, CV: RRR, No murmurs, Pulm: Clear b/l, no wheezing/rhonchi/rales Abd: soft, nontender, +BS x4 Ext: no clubbing/cyanosis/edema, 1+ b/l LE edema Neuro: Alert and awake, does not cooperate with exam, moves all extremities spontaneously. Response to touch extremities, makes eye contact and tracks skin: warm/dry, abrasion to right forearm Medical - PN: Obj Da - Labs CBC & Chem 7: 06/22/19 04:36 06/22/19 04:36 Labs: Abnormal Lab Results 06/22/19 06/22/19 06/21/19 04:36 04:36 12:52 RBC 3.72 L Hgb 12.4 L Hct 36.8 L POC Hct Gran % Lymph % (Auto) 13.7 L Lymph # (Auto) 1.2 L POC PT POC INR Sodium Anion Gap POC BUN BUN 28 H Glucose 117 H POC Glucose Uric Acid 8.6 H POC WB Ioniz Calcium AST 54 H Lactate Dehydrogenase 323 H Total Creatine Kinase 1397 H Urine Ketones 80 A Urine RBC 8 H Urine Mucus Many A Ur Oxycodone Screen 06/21/19 06/21/19 06/21/19 12:52 12:52 12:52 RBC 3.64 L Hgb 12.0 L Hct 35.5 L POC Hct 35.0 L Gran % 82.8 H Lymph % (Auto) 7.5 L Lymph # (Auto) 0.7 L POC PT POC INR Sodium 146 H Anion Gap 18.0 H POC BUN 38 H BUN 40 H Glucose 129 H POC Glucose 129 H Uric Acid POC WB Ioniz Calcium 1.15 L AST 54 H Lactate Dehydrogenase Total Creatine Kinase 1509 H Urine Ketones Urine RBC Urine Mucus Ur Oxycodone Screen Suspect positive A 06/21/19 12:52 RBC Hgb Hct POC Hct Gran % Lymph % (Auto) Lymph # (Auto) POC PT 16.4 H POC INR 1.4 H Sodium Anion Gap POC BUN BUN Glucose POC Glucose Uric Acid POC WB Ioniz Calcium AST Lactate Dehydrogenase Total Creatine Kinase Urine Ketones Urine RBC Urine Mucus Ur Oxycodone Screen Meds: Medications Acetaminophen (Tylenol) 650 mg PO Q6HP PRN PRN Reason: PAIN/FEVER > 101 Albuterol/Ipratropium (Duoneb) 3 ml NEB Q4HP PRN PRN Reason: Shortness Of Breath Bisacodyl (Dulcolax) 10 mg DC DAILYP PRN PRN Reason: Constipation Divalproex Sodium (Depakote Sprinkles) 500 mg PO TID [facility] Last Admin: 06/21/19 23:19 Dose: 500 mg Documented by: Docusate Sodium (Colace) 100 mg PO BID [facility] Last Admin: 06/21/19 23:19 Dose: 100 mg Documented by: Donepezil HCl (Aricept) 5 mg PO HS [facility] Last Admin: 06/21/19 23:19 Dose: 5 mg Documented by: Doxycycline Hyclate (Doxycycline Hyclate) 100 mg PO BID [facility] Last Admin: 06/21/19 23:19 Dose: 100 mg Documented by: Enoxaparin Sodium (Lovenox) 40 mg SQ DAILY [facility] Famotidine (Pepcid) 20 mg IV Q12 [facility] Last Admin: 06/21/19 22:50 Dose: 20 mg Documented by: Potassium Chloride 40 meq/ (Dextrose) 520 mls @ 130 mls/hr IV UD PRN PRN Reason: Potassium < 3 Magnesium Sulfate (Magnesium Sulfate) 2 gm in 50 mls @ 50 mls/hr IV UD PRN PRN Reason: Magnesium </= 1.6 Lactulose (Cephulac) 10 gm PO DAILYP PRN PRN Reason: Constipation Metoclopramide HCl (Reglan) 10 mg IV Q6HP PRN PRN Reason: Nausea And Vomiting Naloxone HCl (Narcan) 0.1 mg IV Q2MIN PRN PRN Reason: Opiate Reversal Ondansetron HCl (Zofran) 4 mg IV Q4HP PRN PRN Reason: Nausea And Vomiting Polyethylene Glycol (Miralax) 17 gm PO DAILYP PRN PRN Reason: Constipation Potassium Chloride (Kdur) 40 meq PO UD PRN PRN Reason: Potssium is 3-3.5 Potassium Chloride (Kdur) 40 meq PO UD PRN PRN Reason: Potassium < 3 Promethazine HCl (Phenergan) 0 mg PO Q6HP PRN PRN Reason: Nausea And Vomiting Senna (Senokot) 2 tab PO HSP PRN PRN Reason: Constipation Sodium Chloride (Saline Flush) 10 ml IV Q8 [facility] Last Admin: 06/22/19 05:42 Dose: 10 ml Documented by: Medical - PN: A/P - Time Spent With Patient Total time spent is greater than 50% in coordination of care (as documented) at patient's floor/unit and/or counseling patient: - Narrative A/P Narrative: A: *Encephalopathy (stupor): responded to narcan reasonably, but believe ativan juana ng culprit as well -ativan and risperidone started 10 days ago -much improved *General decline as of late: *Volume depletion: improved *Rhabdomyolysis: Renal function wnl at this time -no wounds or pressure ulcers noted, but does have significant abrasion to right arm -good UOP *Alzheimer's dementia: Has been on olanzapine in the recent past as well as Depakote. olanzepine/risperidone recently d/c'd outpt *Anxiety: *Chronic pain: *Cellulitis of the right foot: Currently on doxycycline P: -Hold sedative medications, especially Ativan and narcotics -IVF -Follow-up CK -cont depakote -CM -pt/ot -ppx: lovenox code status- Medical - PN: Qual - VTE Deep Vein Thrombosis/Pulmonary Embolism Present on Admission: No
--- NOTE | 2019-06-22 10:09 | Discharge Summary ---
Medical - DS: Prov Patient information: Note initiated : 06/22/19 at 10:07 am Service Date, if different from initiated Date: [] Patient: Raad Gonsalez 74 y/o M admitted on 06/21/19 for Reduced LOC. Chief Complaint: [] Date of admission: 06/21/19 16:33 Primary care physician: CLAYTON Gray Consults: 06/21/19 Consult to Physician [CONS] Stat Comment: Consulting Provider: Los Wallace Reason For Exam: Physician to Consult Medical - DS: Meds - Discharge Medications Prescriptions: oxyCODONE HCL [Oxycodone HCl] 2.5 mg PO BID PRN #10 tab PRN Reason: Pain Active and Home Medications: Home Medications Acetaminophen [Non-Aspirin] 650 mg PO Q4HP PRN 06/21/19 [History Confirmed 06/21/19 Last Taken Unknown] Bisacodyl 10 mg RC PRN PRN 06/21/19 [History Confirmed 06/21/19 Last Taken Unknown] Divalproex Sodium [Depakote] 500 mg PO TID 06/21/19 [History Confirmed 06/21/19 Last Taken Unknown] Docusate Sodium [Colace] 100 mg PO BID 06/21/19 [History Confirmed 06/21/19 Last Taken Unknown] Docusate Sodium [Colace] 100 mg PO DAILYP PRN 06/21/19 [History Confirmed 06/21/19 Last Taken Unknown] Donepezil [Aricept] 5 mg PO HS 06/21/19 [History Confirmed 06/21/19 Last Taken Unknown] Doxycycline Hyclate [Morgidox] 100 mg PO BID 06/21/19 [History Confirmed 06/21/19 Last Taken Unknown] Ibuprofen [Advil] 400 mg PO Q6 PRN 06/21/19 [History Confirmed 06/21/19 Last Taken Unknown] LORazepam [Ativan] 1 mg PO BID 06/21/19 [History Confirmed 06/21/19 Last Taken Unknown] Magnesium Hydroxide [Milk of Magnesia] 30 ml PO DAILYP PRN 06/21/19 [History Confirmed 06/21/19 Last Taken Unknown] Multivitamin,Therapeutic [Thera] 1 tab PO DAILY 06/21/19 [History Confirmed 06/21/19 Last Taken Unknown] oxyCODONE HCL [Oxycodone HCl] 5 mg PO BID 06/21/19 [History Confirmed 06/21/19 Last Taken Unknown] traZODone HCL [Trazodone HCl] 50 mg PO HS 06/21/19 [History Confirmed 06/21/19 Last Taken Unknown] Medical - DS: Hosp Hospital Course: Mr. Gonsalez is a 74 year old M Presents the ED with altered mental status. Sent in from [facility]. History is obtained from charts and staff as patient is unable to give any histo ry given his current state and superimposed Alzheimer's dementia. Per notes patient has been declining for 3 weeks at poor mental status. Is currently getting doxycycline for cellulitis of the dorsum of his right foot. Medical records he is an elopement risk and normally walks.. He was maintaining airway and his vital signs are stable. He is given several dose of Narcan. The initial 0.2 mg dose did not do much but the subsequent 4.4 mg did work well. Work-up in the ED showed a BUN 40 with creatinine 1.1 and elevated CK 1500 with urinalysis showing ketones. He was seen at [facility] on the for confusion and agitation. Work-up was unremarkable. The provider did want to obtain an MRI but was concerned given the patient's agitation whether or not he would hold still. The case was discussed with the power of divorce attorney who did not wish to sedate the patient for MRI. It was presented to the power of divorce attorney that if this was a stroke that he would likely have a poor outcome. The power of divorce attorney what was aware of this and he did not want any aggressive measures. Patient was given a prescription for risperidone and Ativan both which are new medications. The medication list that he presented with showed olanzapine and oxycodone as well as Depakote. In the ED D became more responsive but unable to communicate with the patient. Therefore unable to gather a review of systems. No pressure ulcers noted. 06/22 Patient impulsive at times but otherwise no events overnight. Patient nonverbal. When I go in the room with her talking to me occasionally say yes and few other words but they are not usually an accurate response to my questions or conversation. Discharge diagnosis: Acute on chronic encephalopathy suspect polypharmacy Secondary discharge diagnosis: General decline as of late volume depletion rhabdomyolysis Alzheimer's dementia anxiety chronic pain recently treated cellulitis of the right foot - Time Spent with Patient Total time spent providing and/or coordinating discharge services: Medical - DS: Exam - Constitutional Vitals: Vital Signs Temp Pulse Pulse Resp BP BP Pulse Ox 06/22/19 07:34 98.4 F 20 141/78 98 06/22/19 04:42 98.4 F 72 14 138/73 98 06/21/19 23:45 98.3 F 81 18 131/73 98 06/21/19 16:53 97.4 F 73 18 130/75 95 06/21/19 16:16 98.1 F 77 22 145/72 95 06/21/19 15:46 145/72 06/21/19 15:16 143/76 06/21/19 15:03 137/99 06/21/19 14:46 142/76 06/21/19 14:31 152/78 06/21/19 14:16 135/75 06/21/19 14:01 77 114/60 95 06/21/19 13:47 88 151/76 100 06/21/19 13:31 89 135/77 99 06/21/19 13:26 91 H 147/84 99 06/21/19 12:46 88 136/78 97 06/21/19 12:35 86 22 154/82 95 06/21/19 12:30 98.1 F 18 154/82 96 Intake and Output 06/21/19 06/22/19 06/22/19 21:59 05:59 13:59 Intake Total 1000 1950 Output Total 3350 350 Balance -2350 1600 Intake: IV 1000 1875 Sodium Chloride 0.9% 1,000 ml @ 1000 1875 150 mls/hr IV .Q6H40M [facility] Rx#: [id number] Oral 75 Output: Urine Catheter Amount 3350 350 Other: Urine Appearance Cloudy Cloudy Urine Color Dark Yellow Light Shanti Stool Size Small Stool Color Brown # of times incontinent of 1 Bowels Weight 104.78 kg Medical - DS: Data Labs on day of discharge: Labs from last 24 hours 06/22/19 06/22/19 06/21/19 04:36 04:36 12:52 WBC 8.9 RBC 3.72 L Hgb 12.4 L Hct 36.8 L POC Hct MCV 99.0 MCH 33.3 MCHC 33.6 RDW 12.9 Plt Count 263 MPV 8.4 Gran % 75.5 Lymph % (Auto) 13.7 L [place] % (Auto) 9.7 Eos % (Auto) 1.1 Baso % (Auto) 0 Gran # 6.7 Lymph # (Auto) 1.2 L [place] # (Auto) 0.9 Eos # (Auto) 0.1 Baso # (Auto) 0 POC PT POC INR VBG Lactic Acid POC Sodium Sodium 144 POC Potassium Potassium 3.3 POC Chloride Chloride 105 Carbon Dioxide 28 POC Total CO2 Anion Gap 11.0 POC BUN BUN 28 H Creatinine 1.0 POC Creatinine GFR Calculation 73 Glucose 117 H POC Glucose Uric Acid 8.6 H Calcium 8.8 POC WB Ioniz Calcium Phosphorus 2.8 Magnesium 2.2 2.5 Total Bilirubin 0.4 Direct Bilirubin < 0.2 GGT 14 AST 54 H ALT 22 Alkaline Phosphatase 73 Ammonia Lactate Dehydrogenase 323 H Total Creatine Kinase 1397 H Troponin T NT-Pro-B Natriuret Pep Total Protein 6.8 Albumin 3.9 Globulin 2.9 Albumin/Globulin Ratio 1.3 Triglycerides 94 Urine Color Urine Appearance Urine pH Ur Specific [place] Urine Protein Urine Glucose (UA) Urine Ketones Urine Occult Blood Urine Nitrate Urine Bilirubin Prot Sulfosalicylic Acd Urine Urobilinogen Ur Leukocyte Esterase Urine RBC Urine WBC Ur Squamous Epith Cells Urine Bacteria Urine Mucus Ur Culture Indicated? Urine Opiates Screen Ur Opiates Confirm Ur Oxycodone Screen Urine Methadone Screen Ur Methadone Confirm Ur Barbiturates Screen Ur Barbiturate Confirm Valproic Acid Valproic Acid Dose Valpro Last Dose Time Ur Phencyclidine Scrn Urine PCP Confirm Ur Amphetamines Screen U Amphetamines Confirm U Benzodiazepines Scrn U Benzodiazepine Confm Urine Cocaine Screen Urine Cocaine Confirm U Cannabinoids Confirm U Marijuana (THC) Screen Ethyl Alcohol 06/21/19 06/21/19 06/21/19 12:52 12:52 12:52 WBC RBC Hgb Hct POC Hct MCV MCH MCHC RDW Plt Count MPV Gran % Lymph % (Auto) [place] % (Auto) Eos % (Auto) Baso % (Auto) Gran # Lymph # (Auto) [place] # (Auto) Eos # (Auto) Baso # (Auto) POC PT POC INR VBG Lactic Acid POC Sodium Sodium POC Potassium Potassium POC Chloride Chloride Carbon Dioxide POC Total CO2 Anion Gap POC BUN BUN Creatinine POC Creatinine GFR Calculation Glucose POC Glucose Uric Acid Calcium POC WB Ioniz Calcium Phosphorus Magnesium Total Bilirubin Direct Bilirubin GGT AST ALT Alkaline Phosphatase Ammonia Lactate Dehydrogenase Total Creatine Kinase Troponin T NT-Pro-B Natriuret Pep 124.9 Total Protein Albumin Globulin Albumin/Globulin Ratio Triglycerides Urine Color Shanti Urine Appearance Clear Urine pH 5.0 Ur Specific [place] 1.033 Urine Protein Color interference Urine Glucose (UA) Negative Urine Ketones 80 A Urine Occult Blood Neg Urine Nitrate Neg Urine Bilirubin Neg Prot Sulfosalicylic Acd Neg Urine Urobilinogen Color interference Ur Leukocyte Esterase Neg Urine RBC 8 H Urine WBC < 1 Ur Squamous Epith Cells 0 Urine Bacteria 0 Urine Mucus Many A Ur Culture Indicated? No Urine Opiates Screen Ur Opiates Confirm Ur Oxycodone Screen Urine Methadone Screen Ur Methadone Confirm Ur Barbiturates Screen Ur Barbiturate Confirm Valproic Acid Valproic Acid Dose Valpro Last Dose Time Ur Phencyclidine Scrn Urine PCP Confirm Ur Amphetamines Screen U Amphetamines Confirm U Benzodiazepines Scrn U Benzodiazepine Confm Urine Cocaine Screen Urine Cocaine Confirm U Cannabinoids Confirm U Marijuana (THC) Screen Ethyl Alcohol < 0.010 06/21/19 06/21/19 06/21/19 12:52 12:52 12:52 WBC RBC Hgb Hct POC Hct MCV MCH MCHC RDW Plt Count MPV Gran % Lymph % (Auto) [place] % (Auto) Eos % (Auto) Baso % (Auto) Gran # Lymph # (Auto) [place] # (Auto) Eos # (Auto) Baso # (Auto) POC PT POC INR VBG Lactic Acid POC Sodium Sodium POC Potassium Potassium POC Chloride Chloride Carbon Dioxide POC Total CO2 Anion Gap POC BUN BUN Creatinine POC Creatinine GFR Calculation Glucose POC Glucose Uric Acid Calcium POC WB Ioniz Calcium Phosphorus Magnesium Total Bilirubin Direct Bilirubin GGT AST ALT Alkaline Phosphatase Ammonia Lactate Dehydrogenase Total Creatine Kinase Troponin T < 0.01 NT-Pro-B Natriuret Pep Total Protein Albumin Globulin Albumin/Globulin Ratio Triglycerides Urine Color Urine Appearance Urine pH Ur Specific [place] Urine Protein Urine Glucose (UA) Urine Ketones Urine Occult Blood Urine Nitrate Urine Bilirubin Prot Sulfosalicylic Acd Urine Urobilinogen Ur Leukocyte Esterase Urine RBC Urine WBC Ur Squamous Epith Cells Urine Bacteria Urine Mucus Ur Culture Indicated? Urine Opiates Screen None detected Ur Opiates Confirm Not Reportable Ur Oxycodone Screen Suspect positive A Urine Methadone Screen None detected Ur Methadone Confirm Not Reportable Ur Barbiturates Screen None detected Ur Barbiturate Confirm Not Reportable Valproic Acid 53.5 Valproic Acid Dose Not Reportable Valpro Last Dose Time Not Reportable Ur Phencyclidine Scrn None detected Urine PCP Confirm Not Reportable Ur Amphetamines Screen None detected U Amphetamines Confirm Not Reportable U Benzodiazepines Scrn None detected U Benzodiazepine Confm Not Reportable Urine Cocaine Screen None detected Urine Cocaine Confirm Not Reportable U Cannabinoids Confirm Not Reportable U Marijuana (THC) Screen None detected Ethyl Alcohol 06/21/19 06/21/19 06/21/19 12:52 12:52 12:52 WBC RBC Hgb Hct POC Hct 35.0 L MCV MCH MCHC RDW Plt Count MPV Gran % Lymph % (Auto) [place] % (Auto) Eos % (Auto) Baso % (Auto) Gran # Lymph # (Auto) [place] # (Auto) Eos # (Auto) Baso # (Auto) POC PT POC INR VBG Lactic Acid 1.8 POC Sodium 145 Sodium 146 H POC Potassium 3.7 Potassium 3.8 POC Chloride 107 Chloride 105 Carbon Dioxide 23 POC Total CO2 25 Anion Gap 18.0 H POC BUN 38 H BUN 40 H Creatinine 1.1 POC Creatinine 1.1 GFR Calculation 65 Glucose 129 H POC Glucose 129 H Uric Acid Calcium 9.3 POC WB Ioniz Calcium 1.15 L Phosphorus Magnesium Total Bilirubin 0.3 Direct Bilirubin GGT AST 54 H ALT 24 Alkaline Phosphatase 75 Ammonia 24 Lactate Dehydrogenase Total Creatine Kinase 1509 H Troponin T NT-Pro-B Natriuret Pep Total Protein 7.0 Albumin 4.1 Globulin 2.9 Albumin/Globulin Ratio 1.4 Triglycerides Urine Color Urine Appearance Urine pH Ur Specific [place] Urine Protein Urine Glucose (UA) Urine Ketones Urine Occult Blood Urine Nitrate Urine Bilirubin Prot Sulfosalicylic Acd Urine Urobilinogen Ur Leukocyte Esterase Urine RBC Urine WBC Ur Squamous Epith Cells Urine Bacteria Urine Mucus Ur Culture Indicated? Urine Opiates Screen Ur Opiates Confirm Ur Oxycodone Screen Urine Methadone Screen Ur Methadone Confirm Ur Barbiturates Screen Ur Barbiturate Confirm Valproic Acid Valproic Acid Dose Valpro Last Dose Time Ur Phencyclidine Scrn Urine PCP Confirm Ur Amphetamines Screen U Amphetamines Confirm U Benzodiazepines Scrn U Benzodiazepine Confm Urine Cocaine Screen Urine Cocaine Confirm U Cannabinoids Confirm U Marijuana (THC) Screen Ethyl Alcohol 06/21/19 06/21/19 12:52 12:52 WBC 8.7 RBC 3.64 L Hgb 12.0 L Hct 35.5 L POC Hct MCV 97.6 MCH 33.0 MCHC 33.8 RDW 13.1 Plt Count 284 MPV 8.5 Gran % 82.8 H Lymph % (Auto) 7.5 L [place] % (Auto) 9.3 Eos % (Auto) 0.1 Baso % (Auto) 0.3 Gran # 7.2 Lymph # (Auto) 0.7 L [place] # (Auto) 0.8 Eos # (Auto) 0 Baso # (Auto) 0 POC PT 16.4 H POC INR 1.4 H VBG Lactic Acid POC Sodium Sodium POC Potassium Potassium POC Chloride Chloride Carbon Dioxide POC Total CO2 Anion Gap POC BUN BUN Creatinine POC Creatinine GFR Calculation Glucose POC Glucose Uric Acid Calcium POC WB Ioniz Calcium Phosphorus Magnesium Total Bilirubin Direct Bilirubin GGT AST ALT Alkaline Phosphatase Ammonia Lactate Dehydrogenase Total Creatine Kinase Troponin T NT-Pro-B Natriuret Pep Total Protein Albumin Globulin Albumin/Globulin Ratio Triglycerides Urine Color Urine Appearance Urine pH Ur Specific [place] Urine Protein Urine Glucose (UA) Urine Ketones Urine Occult Blood Urine Nitrate Urine Bilirubin Prot Sulfosalicylic Acd Urine Urobilinogen Ur Leukocyte Esterase Urine RBC Urine WBC Ur Squamous Epith Cells Urine Bacteria Urine Mucus Ur Culture Indicated? Urine Opiates Screen Ur Opiates Confirm Ur Oxycodone Screen Urine Methadone Screen Ur Methadone Confirm Ur Barbiturates Screen Ur Barbiturate Confirm Valproic Acid Valproic Acid Dose Valpro Last Dose Time Ur Phencyclidine Scrn Urine PCP Confirm Ur Amphetamines Screen U Amphetamines Confirm U Benzodiazepines Scrn U Benzodiazepine Confm Urine Cocaine Screen Urine Cocaine Confirm U Cannabinoids Confirm U Marijuana (THC) Screen Ethyl Alcohol Medical - DS: A/P - Patient/Caregiver Discharge Instructions Activity: as per physical therapy Diet: Dysphagia Level 7 Easy to Chew Foods Prescriptions: oxyCODONE HCL [Oxycodone HCl] 2.5 mg PO BID PRN #10 tab PRN Reason: Pain - Follow up Plan Follow up with: Margret Wright MD [Physician] - Disposition: Xfer SNF Prognosis: Undetermined Rehab Potential: Fair I certify that the patient requires SNF services: Yes Overall status at discharge: patient is progressing back to baseline Medical - DS: Qual - VTE Deep Vein Thrombosis/Pulmonary Embolism Present on Admission: No
[2019-06-22] MEDS: DIVALPROEX 125 MG CAP.SPRINK PO SCH ×3 (10:33→22:50)
[2019-06-22] MEDS: DOXYCYCLINE HYCLATE 100 MG TABLET.ORL PO SCH ×2 (10:33→22:50)
[2019-06-22] MEDS: FAMOTIDINE/PF 20 MG/2 ML VIAL IV SCH ×2 (10:35→22:50)
[2019-06-22] MEDS: DOCUSATE SODIUM 100 MG CAPSULE PO SCH ×2 (10:35→22:50)
[2019-06-22] MEDS: ENOXAPARIN 40 MG/0.4 ML SYRINGE SQ SCH (10:35)
[2019-06-22] MEDS: 0.9 % SODIUM CHLORIDE 1,000 ML IV SCH (10:36)
[2019-06-22] MEDS: DONEPEZIL 10 MG TABLET PO SCH (22:50)
[2019-06-23] MEDS: 0.9 % SODIUM CHLORIDE 1,000 ML IV SCH (00:12)
[2019-06-23] MEDS: 0.9 % SODIUM CHLORIDE 10 ML SYRINGE IV SCH ×3 (05:08→21:59)
[2019-06-23 07:31] LABS: ALT/SGPT 23 U/l (0-40); AST/SGOT 44 U/l (0-37); Albumin 3.8 gm/dL (3.2-5.2); Albumin/Globulin Ratio 1.4 (1.0-2.3); Alkaline Phosphatase 77 U/L (39-117); Bilirubin,Direct < 0.2 mg/dL (0.0-0.3); Bilirubin,Total 0.5 mg/dL (0.0-1.0); Blood Urea Nitrogen 15 mg/dl (8-23); Calcium 8.6 mg/dl (8.6-10.4); Carbon Dioxide 27 mmol/L (22-30); Chloride 101 mmol/L (96-108); Globulin 2.8 gm/dL (2.2-3.7); Glomerular Filtration Rate 87; Glucose 106 mg/dL (70-105); Lactate Dehydrogenase 298 U/L (94-250); Phosphorous 2.7 mg/dL (2.7-4.5); Triglycerides 103 mg/dl (<150); Uric Acid 6.4 mg/dL (2.5-8.0)
[2019-06-23] MEDS ORDERED: POTASSIUM CHLORIDE 20 MEQ TABLET PO ONE (08:15)
--- NOTE | 2019-06-23 08:15 | Internal Med Progress Note ---
Medical - PN: Subj Patient information: Note initiated : 06/23/19 at 8:12 am Service Date, if different from initiated Date: [] Patient: Raad Gonsalez 74 y/o M admitted on 06/21/19 for Reduced LOC. Chief Complaint: [] Interval history: Mr. Gonsalez is a 74 year old M Presents the ED with altered mental status. Sent in from [facility]. History is obtained from charts and staff as patient is unable to give any history given his current state and superimposed Alzheimer's dementia. Per notes patient has been declining for 3 weeks at poor mental status. Is currently getting doxycycline for cellulitis of the dorsum of his right foot. Medical records he is an elopement risk and normally walks.. He was maintaining airway and his vital signs are stable. He is given several dose of Narcan. The initial 0.2 mg dose did not do much but the subsequent 4.4 mg did work well. Work-up in the ED showed a BUN 40 with creatinine 1.1 and elevated CK 1500 with urinalysis showing ketones. He was seen at [facility] on the for confusion and agitation. Work-up was unremarkable. The provider did want to obtain an MRI but was concerned given the patient's agitation whether or not he would hold still. The case was discussed with the power of system support technician who did not wish to sedate the patient for MRI. It was presented to the power of system support technician that if this was a stroke that he would likely have a poor outcome. The power of system support technician what was aware of this and he did not want any aggressive measures. Patient was given a prescription for risperidone and Ativan both which are new medications. The medication list that he presented with showed olanzapine and oxycodone as well as Depakote. In the ED D became more responsive but unable to communicate with the patient. Therefore unable to gather a review of systems. No pressure ulcers noted. 06/22 Patient impulsive at times but otherwise no events overnight. Patient nonverbal. When I go in the room with her talking to me occasionally say yes and few other words but they are not usually an accurate response to my questi ons or conversation. 06/23 Patient had no issues overnight. Did need assistance with meals. Unable to obtain review of systems given advanced dementia - Constitutional Vitals: Vital Signs Temp Pulse Resp BP Pulse Ox 98.9 F 78 14 145/77 96 06/23/19 07:30 06/23/19 07:30 06/23/19 07:30 06/23/19 07:30 06/23/19 07:30 Period Temp Pulse Resp BP Sys/Saldana Pulse Ox Last 24 Hr 97.9 F-98.9 F 71-85 14-20 143-159/77-87 96-99 Intake and Output 06/22/19 06/23/19 06/23/19 21:59 05:59 13:59 Intake Total 1530 240 Output Total 1100 451 Balance -1100 1079 240 Weight 105.46 kg Intake & Output: Intake & Output 06/22/19 06/23/19 06/23/19 21:59 05:59 13:59 Intake Total 1530 240 Output Total 1100 451 Balance -1100 1079 240 Weight 105.46 kg Intake: IV 1000 Sodium Chloride 0.9% 1,000 ml @ 1000 75 mls/hr IV .[id number] JOEL Rx#: [id number] Oral 530 240 Output: Urine Catheter Amount 450 Void Amount 1100 # of times incontinent of urine 1 Other: Meal Pudding, Yogurt, Jello Percent of Meal Consumed 50% Urine Appearance Cloudy Urine Color Light Shanti Stool Size Small Small Smear Stool Color Brown Brown Brown Stool Consistency Loose Loose Soft # Bowel Movements 1 # of times incontinent of 1 Bowels Exam: General: Alert and awake, No acute Distress Eyes/N/T: EOMI, Head/Neck: neck supple, CV: RRR, No murmurs, Pulm: Clear b/l, no wheezing/rhonchi/rales Abd: soft, nontender, +BS x4 Ext: no clubbing/cyanosis/edema, 1+ b/l LE edema Neuro: Alert and awake, does not cooperate with exam, moves all extremities spontaneously. Response to touch extremities, makes eye contact and tracks skin: warm/dry, abrasion to right forearm Medical - PN: Obj Da - Labs CBC & Chem 7: 06/22/19 04:36 06/23/19 04:25 Labs: Abnormal Lab Results 06/23/19 06/23/19 06/22/19 04:25 04:25 04:36 RBC Hgb Hct POC Hct Gran % Lymph % (Auto) Lymph # (Auto) POC PT POC INR Sodium Potassium 3.1 L Anion Gap POC BUN BUN 28 H Glucose 106 H 117 H POC Glucose Uric Acid 8.6 H POC WB Ioniz Calcium AST 44 H 54 H Lactate Dehydrogenase 298 H 323 H Total Creatine Kinase 846 H 1397 H Urine Ketones Urine RBC Urine Mucus Ur Oxycodone Screen 06/22/19 06/21/19 06/21/19 04:36 12:52 12:52 RBC 3.72 L Hgb 12.4 L Hct 36.8 L POC Hct Gran % Lymph % (Auto) 13.7 L Lymph # (Auto) 1.2 L POC PT POC INR Sodium Potassium Anion Gap POC BUN BUN Glucose POC Glucose Uric Acid POC WB Ioniz Calcium AST Lactate Dehydrogenase Total Creatine Kinase Urine Ketones 80 A Urine RBC 8 H Urine Mucus Many A Ur Oxycodone Screen Suspect positive A 06/21/19 06/21/19 06/21/19 12:52 12:52 12:52 RBC 3.64 L Hgb 12.0 L Hct 35.5 L POC Hct 35.0 L Gran % 82.8 H Lymph % (Auto) 7.5 L Lymph # (Auto) 0.7 L POC PT 16.4 H POC INR 1.4 H Sodium 146 H Potassium Anion Gap 18.0 H POC BUN 38 H BUN 40 H Glucose 129 H POC Glucose 129 H Uric Acid POC WB Ioniz Calcium 1.15 L AST 54 H Lactate Dehydrogenase Total Creatine Kinase 1509 H Urine Ketones Urine RBC Urine Mucus Ur Oxycodone Screen Meds: Medications Acetaminophen (Tylenol) 650 mg PO Q6HP PRN PRN Reason: PAIN/FEVER > 101 Albuterol/Ipratropium (Duoneb) 3 ml NEB Q4HP PRN PRN Reason: Shortness Of Breath Bisacodyl (Dulcolax) 10 mg [place] DAILYP PRN PRN Reason: Constipation Divalproex Sodium (Depakote Sprinkles) 500 mg PO TID [facility] Last Admin: 06/22/19 22:50 Dose: 500 mg Documented by: Docusate Sodium (Colace) 100 mg PO BID [facility] Last Admin: 06/22/19 22:50 Dose: 100 mg Documented by: Donepezil HCl (Aricept) [address] [facility] Last Admin: 06/22/19 22:50 Dose: 5 mg Documented by: Doxycycline Hyclate (Doxycycline Hyclate) 100 mg PO BID [facility] Last Admin: 06/22/19 22:50 Dose: 100 mg Documented by: Enoxaparin Sodium (Lovenox) 40 mg SQ DAILY [facility] Last Admin: 06/22/19 10:35 Dose: 40 mg Documented by: Famotidine (Pepcid) 20 mg IV Q12 [facility] Last Admin: 06/22/19 22:50 Dose: 20 mg Documented by: Potassium Chloride 40 meq/ (Dextrose) 520 mls @ 130 mls/hr IV UD PRN PRN Reason: Potassium < 3 Magnesium Sulfate (Magnesium Sulfate) 2 gm in 50 mls @ 50 mls/hr IV UD PRN PRN Reason: Magnesium </= 1.6 Lactulose (Cephulac) 10 gm PO DAILYP PRN PRN Reason: Constipation Metoclopramide HCl (Reglan) 10 mg IV Q6HP PRN PRN Reason: Nausea And Vomiting Naloxone HCl (Narcan) 0.1 mg IV Q2MIN PRN PRN Reason: Opiate Reversal Ondansetron HCl (Zofran) 4 mg IV Q4HP PRN PRN Reason: Nausea And Vomiting Polyethylene Glycol (Miralax) 17 gm PO DAILYP PRN PRN Reason: Constipation Potassium Chloride (Kdur) 40 meq PO UD PRN PRN Reason: Potssium is 3-3.5 Potassium Chloride (Kdur) 40 meq PO UD PRN PRN Reason: Potassium < 3 Promethazine HCl (Phenergan) 0 mg PO Q6HP PRN PRN Reason: Nausea And Vomiting Senna (Senokot) 2 tab PO HSP PRN PRN Reason: Constipation Sodium Chloride (Saline Flush) 10 ml IV Q8 [facility] Last Admin: 06/23/19 05:08 Dose: Not Given Documented by: Medical - PN: A/P - Time Spent With Patient Total time spent is greater than 50% in coordination of care (as documented) at patient's floor/unit and/or counseling patient: - Narrative A/P Narrative: A: *Encephalopathy (stupor): responded to narcan reasonably, but believe ativan being culprit as well -ativan and risperidone started 10 days ago -much improved *General decline as of late: *Volume depletion: improved *Rhabdomyolysis: Renal function wnl at this time -no wounds or pressure ulcers noted, but does have significant abrasion to right arm -good UOP -improved *Alzheimer's dementia: Has been on olanzapine in the recent past as well as Depakote. olanzepine/risperidone recently d/c'd outpt *Anxiety: *Chronic pain: *Cellulitis of the right foot: Currently on doxycycline P: -Hold sedative medications, especially Ativan and narcotics -Follow-up CK -cont depakote -CM -pt/ot -ppx: lovenox code status- Medical - PN: Qual - VTE Deep Vein Thrombosis/Pulmonary Embolism Present on Admission: No
[2019-06-23] MEDS: ENOXAPARIN 40 MG/0.4 ML SYRINGE SQ SCH (10:54)
[2019-06-23] MEDS: DIVALPROEX 125 MG CAP.SPRINK PO SCH ×3 (10:55→21:57)
[2019-06-23] MEDS: DOCUSATE SODIUM 100 MG CAPSULE PO SCH ×2 (10:57→21:58)
[2019-06-23] MEDS: DOXYCYCLINE HYCLATE 100 MG TABLET.ORL PO SCH ×2 (10:57→21:58)
[2019-06-23] MEDS: LACTULOSE 20 GM/30 ML ORAL.SOL PO PRN (14:37)
[2019-06-23] MEDS: FAMOTIDINE/PF 20 MG/2 ML VIAL IV SCH (14:40)
[2019-06-23] MEDS: FAMOTIDINE 20 MG TABLET PO SCH (21:58)
[2019-06-23] MEDS: DONEPEZIL 10 MG TABLET PO SCH (21:58)
[2019-06-24] MEDS ORDERED: LACTULOSE 20 GM/30 ML ORAL.SOL ONE ×3 (00:44→05:09)
[2019-06-24] MEDS: LACTULOSE 20 GM/30 ML ORAL.SOL PO PRN ×3 (05:08→09:17)
[2019-06-24] MEDS: 0.9 % SODIUM CHLORIDE 10 ML SYRINGE IV SCH (06:39)
--- NOTE | 2019-06-24 08:54 | Internal Med Progress Note ---
Medical - PN: Subj Patient information: Note initiated : 06/24/19 at 8:52 am Service Date, if different from initiated Date: [] Patient: Raad Gonsalez 74 y/o M admitted on 06/21/19 for Reduced LOC. Chief Complaint: [] Interval history: Mr. Gonsalez is a 74 year old M Presents the ED with altered mental status. Sent in from [facility]. History is obtained from charts and staff as patient is unable to give any history given his current state and superimposed Alzheimer's dementia. Per notes patient has been declining for 3 weeks at poor mental status. Is currently getting doxycycline for cellulitis of the dorsum of his right foot. Medical records he is an elopement risk and normally walks.. He was maintaining airway and his vital signs are stable. He is given several dose of Narcan. The initial 0.2 mg dose did not do much but the subsequent 4.4 mg did work well. Work-up in the ED showed a BUN 40 with creatinine 1.1 and elevated CK 1500 with urinalysis showing ketones. He was seen at [facility] on the for confusion and agitation. Work-up was unremarkable. The provider did want to obtain an MRI but was concerned given the patient's agitation whether or not he would hold still. The case was discussed with the power of [place] attorney who did not wish to sedate the patient for MRI. It was presented to the power of [place] attorney that if this was a stroke that he would likely have a poor outcome. The power of [place] attorney what was aware of this and he did not want any aggressive measures. Patient was given a prescription for risperidone and Ativan both which are new medications. The medication list that he presented with showed olanzapine and oxycodone as well as Depakote. In the ED D became more responsive but unable to communicate with the patient. Therefore unable to gather a review of systems. No pressure ulcers noted. 06/22 Patient impulsive at times but otherwise no events overnight. Patient nonverbal. When I go in the room with her talking to me occasionally say yes and few other words but they are not usually an accurate response to my questi ons or conversation. 06/23 Patient had no issues overnight. Did need assistance with meals. 06/24 Again no overnight events. Occasionally impulsive but otherwise cooperative. Unable to obtain review of systems given advanced dementia - Constitutional Vitals: Vital Signs Temp Pulse Resp BP Pulse Ox 97.6 F 71 14 147/90 98 06/24/19 07:25 06/24/19 07:25 06/24/19 07:25 06/24/19 07:25 06/24/19 07:25 Period Temp Pulse Resp BP Sys/Saldana Pulse Ox Last 24 Hr 97.6 F-98.7 F 71-88 14-16 127-160/72-93 92-98 Intake and Output 06/23/19 06/24/19 06/24/19 21:59 05:59 13:59 Intake Total 300 760 Output Total 1 Balance 300 759 Weight 108.635 kg Intake & Output: Intake & Output 06/23/19 06/24/19 06/24/19 21:59 05:59 13:59 Intake Total 300 760 Output Total 1 Balance 300 759 Weight 108.635 kg Intake: Oral 300 760 Output: # of times incontinent of urine 1 Other: Meal Lunch Egg salad Percent of Meal Consumed 75% 100% Feeding Ability Total Assistance Total Assistance Stool Size Smear Smear Stool Color Brown Brown Stool Consistency Vivien # Bowel Movements 1 Exam: General: Alert and awake, No acute Distress Eyes/N/T: EOMI, Head/Neck: neck supple, CV: RRR, No murmurs, Pulm: Clear b/l, no wheezing/rhonchi/rales Abd: soft, nontender, +BS x4 Ext: no clubbing/cyanosis/edema, trace b/l LE edema Neuro: Alert and awake, does not cooperate with exam, moves all extremities spontaneously. Response to touch extremities, makes eye contact and tracks skin: warm/dry, abrasion to right forearm Medical - PN: Obj Da - Labs CBC & Chem 7: 06/22/19 04:36 06/23/19 04:25 Labs: Abnormal Lab Results 06/23/19 06/23/19 06/22/19 04:25 04:25 04:36 RBC Hgb Hct POC Hct Gran % Lymph % (Auto) Lymph # (Auto) POC PT POC INR Sodium Potassium 3.1 L Anion Gap POC BUN BUN 28 H Glucose 106 H 117 H POC Glucose Uric Acid 8.6 H POC WB Ioniz Calcium AST 44 H 54 H Lactate Dehydrogenase 298 H 323 H Total Creatine Kinase 846 H 1397 H Urine Ketones Urine RBC Urine Mucus Ur Oxycodone Screen 06/22/19 06/21/19 06/21/19 04:36 12:52 12:52 RBC 3.72 L Hgb 12.4 L Hct 36.8 L POC Hct Gran % Lymph % (Auto) 13.7 L Lymph # (Auto) 1.2 L POC PT POC INR Sodium Potassium Anion Gap POC BUN BUN Glucose POC Glucose Uric Acid POC WB Ioniz Calcium AST Lactate Dehydrogenase Total Creatine Kinase Urine Ketones 80 A Urine RBC 8 H Urine Mucus Many A Ur Oxycodone Screen Suspect positive A 06/21/19 06/21/19 06/21/19 12:52 12:52 12:52 RBC 3.64 L Hgb 12.0 L Hct 35.5 L POC Hct 35.0 L Gran % 82.8 H Lymph % (Auto) 7.5 L Lymph # (Auto) 0.7 L POC PT 16.4 H POC INR 1.4 H Sodium 146 H Potassium Anion Gap 18.0 H POC BUN 38 H BUN 40 H Glucose 129 H POC Glucose 129 H Uric Acid POC WB Ioniz Calcium 1.15 L AST 54 H Lactate Dehydrogenase Total Creatine Kinase 1509 H Urine Ketones Urine RBC Urine Mucus Ur Oxycodone Screen Meds: Medications Acetaminophen (Tylenol) 650 mg PO Q6HP PRN PRN Reason: PAIN/FEVER > 101 Last Admin: 06/23/19 17:29 Dose: 650 mg Documented by: Albuterol/Ipratropium (Duoneb) 3 ml NEB Q4HP PRN PRN Reason: Shortness Of Breath Bisacodyl (Dulcolax) 10 mg [place] DAILYP PRN PRN Reason: Constipation Divalproex Sodium (Depakote Sprinkles) 500 mg PO TID [facility] Last Admin: 06/23/19 21:57 Dose: 500 mg Documented by: Docusate Sodium (Colace) 100 mg PO BID [facility] Last Admin: 06/23/19 21:58 Dose: 100 mg Documented by: Donepezil HCl (Aricept) 5 mg PO [facility] Last Admin: 06/23/19 21:58 Dose: 5 mg Documented by: Doxycycline Hyclate (Doxycycline Hyclate) 100 mg PO BID [facility] Last Admin: 06/23/19 21:58 Dose: 100 mg Documented by: Enoxaparin Sodium (Lovenox) 40 mg SQ DAILY [facility] Last Admin: 06/23/19 10:54 Dose: 40 mg Documented by: Famotidine (Pepcid) 20 mg PO BID [facility] Last Admin: 06/23/19 21:58 Dose: 20 mg Documented by: Potassium Chloride 40 meq/ (Dextrose) 520 mls @ 130 mls/hr IV UD PRN PRN Reason: Potassium < 3 Magnesium Sulfate (Magnesium Sulfate) 2 gm in 50 mls @ 50 mls/hr IV UD PRN PRN Reason: Magnesium </= 1.6 Lactulose (Cephulac) 10 gm PO DAILYP PRN PRN Reason: Constipation Last Admin: 06/23/19 14:37 Dose: 10 gm Documented by: Lactulose (Cephulac) 10 gm PO Q2HP PRN PRN Reason: Constipation Last Admin: 06/24/19 05:08 Dose: 10 gm Documented by: Metoclopramide HCl (Reglan) 10 mg IV Q6HP PRN PRN Reason: Nausea And Vomiting Naloxone HCl (Narcan) 0.1 mg IV Q2MIN PRN PRN Reason: Opiate Reversal Ondansetron HCl (Zofran) 4 mg IV Q4HP PRN PRN Reason: Nausea And Vomiting Polyethylene Glycol (Miralax) 17 gm PO DAILYP PRN PRN Reason: Constipation Potassium Chloride (Kdur) 40 meq PO UD PRN PRN Reason: Potssium is 3-3.5 Potassium Chloride (Kdur) 40 meq PO UD PRN PRN Reason: Potassium < 3 Promethazine HCl (Phenergan) 0 mg PO Q6HP PRN PRN Reason: Nausea And Vomiting Senna (Senokot) 2 tab PO HSP PRN PRN Reason: Constipation Medical - PN: A/P - Time Spent With Patient Total time spent is greater than 50% in coordination of care (as documented) at patient's floor/unit and/or counseling patient: - Narrative A/P Narrative: A: *Encephalopathy (stupor): responded to narcan reasonably, but believe ativan being culprit as well -ativan and risperidone started 10 days ago -much improved *General decline as of late: *Volume depletion: improved *Rhabdomyolysis: Renal function wnl at this time -no wounds or pressure ulcers noted, but does have significant abrasion to right arm -good UOP -improved *Alzheimer's dementia: Has been on olanzapine in the recent past as well as Depakote. olanzepine/risperidone recently d/c'd outpt *Anxiety: *Chronic pain: *Cellulitis of the right foot: Currently on doxycycline P: -Hold sedative medications, especially Ativan and narcotics -cont depakote -CM -pt/ot -ppx: lovenox code status- Medical - PN: Qual - VTE Deep Vein Thrombosis/Pulmonary Embolism Present on Admission: No
[2019-06-24] MEDS: DOXYCYCLINE HYCLATE 100 MG TABLET.ORL PO SCH (08:56)
[2019-06-24] MEDS: DOCUSATE SODIUM 100 MG CAPSULE PO SCH (08:57)
[2019-06-24] MEDS: FAMOTIDINE 20 MG TABLET PO SCH (08:57)
[2019-06-24] MEDS: ENOXAPARIN 40 MG/0.4 ML SYRINGE SQ SCH (08:58)
[2019-06-24] MEDS: DIVALPROEX 125 MG CAP.SPRINK PO SCH ×2 (09:19→14:43)
[2019-06-24] MEDS ORDERED: FLU VACC QS2019-20(6MOS UP)/PF 60 MCG/0.5 ML SYRINGE IM ONE (17:04)
[2019-06-25] MEDS: DONEPEZIL 10 MG TABLET PO SCH ×2 (00:07→22:01)
[2019-06-25] MEDS: FAMOTIDINE 20 MG TABLET PO SCH ×3 (00:08→22:01)
[2019-06-25] MEDS: DOXYCYCLINE HYCLATE 100 MG TABLET.ORL PO SCH ×3 (00:08→22:02)
[2019-06-25] MEDS: DOCUSATE SODIUM 100 MG CAPSULE PO SCH ×3 (00:08→22:02)
[2019-06-25] MEDS: DIVALPROEX 125 MG CAP.SPRINK PO SCH ×4 (00:08→22:01)
--- NOTE | 2019-06-25 07:27 | Internal Med Progress Note ---
Medical - PN: Subj Patient information: Note initiated : 06/25/19 at 7:26 am Service Date, if different from initiated Date: [] Patient: Raad Gonsalez 74 y/o M admitted on 06/21/19 for Reduced LOC. Chief Complaint: [] Interval history: Mr. Gonsalez is a 74 year old M Presents the ED with altered mental status. Sent in from [facility]. History is obtained from charts and staff as patient is unable to give any history given his current state and superimposed Alzheimer's dementia. Per notes patient has been declining for 3 weeks at poor mental status. Is currently getting doxycycline for cellulitis of the dorsum of his right foot. Medical records he is an elopement risk and normally walks.. He was maintaining airway and his vital signs are stable. He is given several dose of Narcan. The initial 0.2 mg dose did not do much but the subsequent 4.4 mg did work well. Work-up in the ED showed a BUN 40 with creatinine 1.1 and elevated CK 1500 with urinalysis showing ketones. He was seen at [facility] on the for confusion and agitation. Work-up was unremarkable. The provider did want to obtain an MRI but was concerned given the patient's agitation whether or not he would hold still. The case was discussed with the power of title attorney who did not wish to sedate the patient for MRI. It was presented to the power of title attorney that if this was a stroke that he would likely have a poor outcome. The power of title attorney what was aware of this and he did not want any aggressive measures. Patient was given a prescription for risperidone and Ativan both which are new medications. The medication list that he presented with showed olanzapine and oxycodone as well as Depakote. In the ED D became more responsive but unable to communicate with the patient. Therefore unable to gather a review of systems. No pressure ulcers noted. 06/22 Patient impulsive at times but otherwise no events overnight. Patient nonverbal. When I go in the room with her talking to me occasionally say yes and few other words but they are not usually an accurate response to my questi ons or conversation. 06/23 Patient had no issues overnight. Did need assistance with meals. 06/24 Again no overnight events. Occasionally impulsive but otherwise cooperative. 06/25 Difficult to directed times. Still impulsive occasionally quite a bit of assistance to get on the toilet/commode. Unable to obtain review of systems given advanced dementia - Constitutional Vitals: Vital Signs Temp Pulse Resp BP Pulse Ox 98.0 F 79 16 146/90 100 06/25/19 05:27 06/25/19 05:27 06/25/19 05:27 06/25/19 05:27 06/25/19 05:27 Period Temp Pulse Resp BP Sys/Saldana Pulse Ox Last 24 Hr 97.2 F-98.6 F 75-89 12-20 127-155/80-91 93-100 Intake and Output 06/24/19 06/25/19 06/25/19 21:59 05:59 13:59 Intake Total 390 800 Output Total 3 3 Balance 387 797 Weight 105.007 kg Intake & Output: Intake & Output 06/24/19 06/25/19 06/25/19 21:59 05:59 13:59 Intake Total 390 800 Output Total 3 3 Balance 387 797 Weight 105.007 kg Intake: Oral 390 800 Output: # of times incontinent of urine 3 3 Other: Meal Dinner Percent of Meal Consumed 100% Feeding Ability Total Assistance Stool Size Moderate Smear Stool Color Brown Brown Stool Consistency Soft # of times incontinent of 2 Bowels Exam: General: Alert and awake, No acute Distress Eyes/N/T: EOMI, Head/Neck: neck supple, CV: RRR, No murmurs, Pulm: Clear b/l, no wheezing/rhonchi/rales Abd: soft, nontender, +BS x4 Ext: no clubbing/cyanosis/edema, trace b/l LE edema Neuro: Alert and awake, does not cooperate with exam, moves all extremities spontaneously. Response to touch extremities, makes eye contact and tracks skin: warm/dry, abrasion to right forearm Medical - PN: Obj Da - Labs CBC & Chem 7: 06/22/19 04:36 06/23/19 04:25 Labs: Abnormal Lab Results 06/23/19 06/23/19 04:25 04:25 Potassium 3.1 L Glucose 106 H AST 44 H Lactate Dehydrogenase 298 H Total Creatine Kinase 846 H Meds: Medications Acetaminophen (Tylenol) 650 mg PO Q6HP PRN PRN Reason: PAIN/FEVER > 101 Last Admin: 06/23/19 17:29 Dose: 650 mg Documented by: Albuterol/Ipratropium (Duoneb) 3 ml NEB Q4HP PRN PRN Reason: Shortness Of Breath Bisacodyl (Dulcolax) 10 mg [place] DAILYP PRN PRN Reason: Constipation Divalproex Sodium (Depakote Sprinkles) 500 mg PO TID [facility] Last Admin: 06/25/19 00:08 Dose: 500 mg Documented by: Docusate Sodium (Colace) 100 mg PO BID [facility] Last Admin: 06/25/19 00:08 Dose: 100 mg Documented by: Donepezil HCl (Aricept) 5 mg PO HS [facility] Last Admin: 06/25/19 00:07 Dose: 5 mg Documented by: Doxycycline Hyclate (Doxycycline Hyclate) 100 mg PO BID [facility] Last Admin: 06/25/19 00:08 Dose: 100 mg Documented by: Enoxaparin Sodium (Lovenox) 40 mg SQ DAILY [facility] Last Admin: 06/24/19 08:58 Dose: 40 mg Documented by: Famotidine (Pepcid) 20 mg PO BID [facility] Last Admin: 06/25/19 00:08 Dose: 20 mg Documented by: Potassium Chloride 40 meq/ (Dextrose) 520 mls @ 130 mls/hr IV UD PRN PRN Reason: Potassium < 3 Magnesium Sulfate (Magnesium Sulfate) 2 gm in 50 mls @ 50 mls/hr IV UD PRN PRN Reason: Magnesium </= 1.6 Lactulose (Cephulac) 10 gm PO DAILYP PRN PRN Reason: Constipation Last Admin: 06/24/19 09:17 Dose: 10 gm Documented by: Metoclopramide HCl (Reglan) 10 mg IV Q6HP PRN PRN Reason: Nausea And Vomiting Naloxone HCl (Narcan) 0.1 mg IV Q2MIN PRN PRN Reason: Opiate Reversal Ondansetron HCl (Zofran) 4 mg IV Q4HP PRN PRN Reason: Nausea And Vomiting Polyethylene Glycol (Miralax) 17 gm PO DAILYP PRN PRN Reason: Constipation Potassium Chloride (Kdur) 40 meq PO UD PRN PRN Reason: Potssium is 3-3.5 Potassium Chloride (Kdur) 40 meq PO UD PRN PRN Reason: Potassium < 3 Promethazine HCl (Phenergan) 0 mg PO Q6HP PRN PRN Reason: Nausea And Vomiting Senna (Senokot) 2 tab PO HSP PRN PRN Reason: Constipation Medical - PN: A/P - Time Spent With Patient Total time spent is greater than 50% in coordination of care (as documented) at patient's floor/unit and/or counseling patient: - Narrative A/P Narrative: A: *Encephalopathy (stupor): responded to narcan reasonably, but believe ativan juana ng culprit as well -ativan and risperidone started 10 days ago -much improved *General decline as of late: *Volume depletion: improved *Rhabdomyolysis: Renal function wnl at this time -no wounds or pressure ulcers noted, but does have significant abrasion to right arm -good UOP -improved *Alzheimer's dementia: Has been on olanzapine in the recent past as well as Depakote. olanzepine/risperidone recently d/c'd outpt *Anxiety: *Chronic pain: *Cellulitis of the right foot: Currently on doxycycline, finish P: -Hold sedative medications, especially Ativan (only recently started) and narcotics -cont depakote -CM -pt/ot -Still awaiting placement -ppx: lovenox code status- Medical - PN: Qual - VTE Deep Vein Thrombosis/Pulmonary Embolism Present on Admission: No
[2019-06-25] MEDS: ENOXAPARIN 40 MG/0.4 ML SYRINGE SQ SCH (09:51)
[2019-06-26] MEDS: FAMOTIDINE 20 MG TABLET PO SCH ×3 (08:55→20:17)
[2019-06-26] MEDS: ENOXAPARIN 40 MG/0.4 ML SYRINGE SQ SCH (08:55)
[2019-06-26] MEDS: DOXYCYCLINE HYCLATE 100 MG TABLET.ORL PO SCH ×2 (08:55→09:29)
[2019-06-26] MEDS: DOCUSATE SODIUM 100 MG CAPSULE PO SCH ×3 (08:55→20:16)
[2019-06-26] MEDS: DIVALPROEX 125 MG CAP.SPRINK PO SCH ×3 (09:29→20:16)
--- NOTE | 2019-06-26 15:19 | Internal Med Progress Note ---
Medical - PN: Subj Patient information: Note initiated : 06/26/19 at 3:16 pm Service Date, if different from initiated Date: [] Patient: Raad Gonsalez 74 y/o M admitted on 06/21/19 for Reduced LOC. Chief Complaint: f/u encephalopathy Interval history: 06/21 Mr. Gonsalez is a 74 year old M Presents the ED with altered mental status. Sent in from [facility]. History is obtained from charts and staff as patient is unable to give any history given his current state and superimposed Alzheimer's dementia. Per notes patient has been declining for 3 weeks at poor mental status. Is currently getting doxycycline for cellulitis of the dorsum of his right foot. Medical records he is an elopement risk and normally walks.. He was maintaining airway and his vital signs are stable. He is given several dose of Narcan. The initial 0.2 mg dose did not do much but the subsequent 4.4 mg did work well. Work-up in the ED showed a BUN 40 with creatinine 1.1 and elevated CK 1500 with urinalysis showing ketones. He was seen at [facility] on the for confusion and agitation. Work-up was unremarkable. The provider did want to obtain an MRI but was concerned given the patient's agitation whether or not he would hold still. The case was discussed with the power of commercial litigation attorney who did not wish to sedate the patient for MRI. It was presented to the power of commercial litigation attorney that if this was a stroke that he would likely have a poor outcome. The power of commercial litigation attorney what was aware of this and he did not want any aggressive measures. Patient was given a prescription for risperidone and Ativan both which are new medications. The medication list that he presented with showed olanzapine and oxycodone as well as Depakote. In the ED D became more responsive but unable to communicate with the patient. Therefore unable to gather a review of systems. No pressure ulcers noted. 06/22 Patient impulsive at times but otherwise no events overnight. Patient nonverbal. When I go in the room with her talking to me occasionally say yes and few other words but they are not usually an accurate response to my questions or conversation. 06/23 Patient had no issues overnight. Did need assistance with meals. 06/24 Again no overnight events. Occasionally impulsive but otherwise cooperative. 06/25 Difficult to directed times. Still impulsive occasionally quite a bit of assistance to get on the toilet/commode. Unable to obtain review of systems given advanced dementia 06/26 Up ambulating with nursing staff. Generally nonverbal, did say thank you when he came back from a walk this afternoon. Still requiring supervision's is impulsive and requires assistance to get up from bed. Awaiting placement on Sunday. - Constitutional Vitals: Vital Signs Temp Pulse Resp BP Pulse Ox 98.4 F 84 18 121/80 99 06/26/19 11:34 06/26/19 09:00 06/26/19 11:34 06/26/19 11:34 06/26/19 11:34 Period Temp Pulse Resp BP Sys/Saldana Pulse Ox Last 24 Hr 97.7 F-98.4 F 78-89 14-18 99-145/72-85 96-99 Intake and Output 06/26/19 06/26/19 06/26/19 05:59 13:59 21:59 Intake Total 960 Output Total 2 177 Balance -2 783 Intake & Output: Intake & Output 06/26/19 06/26/19 06/26/19 05:59 13:59 21:59 Intake Total 960 Output Total 2 177 Balance -2 783 Intake: Oral 960 Output: Void Amount 175 # of times incontinent of urine 2 2 Other: Meal Lunch Percent of Meal Consumed 100% Feeding Ability Total Assistance Urine Appearance Clear Clear Urine Color Bright Yellow Dark Yellow Urine Odor Normal Stool Size Smear Stool Color Brown Stool Consistency Soft Exam: General: Sitting up in chair, no acute distress, looks at me, does not respond verbally Chest: Shallow respiratory effort, unlabored, clear Cardiovascular: Regular, no edema Abdomen: Soft, no apparent tenderness Neuro: Nonverbal, ambulating with standby assistance in the halls. Displays impulsivity. Medical - PN: Obj Da - Labs CBC & Chem 7: 06/22/19 04:36 06/23/19 04:25 Meds: Medications Acetaminophen (Tylenol) 650 mg PO Q6HP PRN PRN Reason: PAIN/FEVER > 101 Last Admin: 06/23/19 17:29 Dose: 650 mg Documented by: Albuterol/Ipratropium (Duoneb) 3 ml NEB Q4HP PRN PRN Reason: Shortness Of Breath Bisacodyl (Dulcolax) 10 mg [place] DAILYP PRN PRN Reason: Constipation Divalproex Sodium (Depakote Sprinkles) 500 mg PO TID [facility] Last Admin: 06/26/19 15:04 Dose: 500 mg Documented by: Docusate Sodium (Colace) 100 mg PO BID [facility] Last Admin: 06/26/19 09:16 Dose: Not Given Documented by: Donepezil HCl (Aricept) 5 mg PO HS [facility] Last Admin: 06/25/19 22:01 Dose: 5 mg Documented by: Enoxaparin Sodium (Lovenox) 40 mg SQ DAILY [facility] Last Admin: 06/26/19 08:55 Dose: 40 mg Documented by: Famotidine (Pepcid) 20 mg PO BID [facility] Last Admin: 06/26/19 09:16 Dose: Not Given Documented by: Potassium Chloride 40 meq/ (Dextrose) 520 mls @ 130 mls/hr IV UD PRN PRN Reason: Potassium < 3 Magnesium Sulfate (Magnesium Sulfate) 2 gm in 50 mls @ 50 mls/hr IV UD PRN PRN Reason: Magnesium </= 1.6 Lactulose (Cephulac) 10 gm PO DAILYP PRN PRN Reason: Constipation Last Admin: 06/24/19 09:17 Dose: 10 gm Documented by: Metoclopramide HCl (Reglan) 10 mg IV Q6HP PRN PRN Reason: Nausea And Vomiting Naloxone HCl (Narcan) 0.1 mg IV Q2MIN PRN PRN Reason: Opiate Reversal Ondansetron HCl (Zofran) 4 mg IV Q4HP PRN PRN Reason: Nausea And Vomiting Polyethylene Glycol (Miralax) 17 gm PO DAILYP PRN PRN Reason: Constipation Last Admin: 06/26/19 08:56 Dose: 17 gm Documented by: Potassium Chloride (Kdur) 40 meq PO UD PRN PRN Reason: Potssium is 3-3.5 Last Admin: 06/26/19 11:30 Dose: 40 meq Documented by: Potassium Chloride (Kdur) 40 meq PO UD PRN PRN Reason: Potassium < 3 Promethazine HCl (Phenergan) 0 mg PO Q6HP PRN PRN Reason: Nausea And Vomiting Senna (Senokot) 2 tab PO HSP PRN PRN Reason: Constipation Medical - PN: A/P - Time Spent With Patient Total time spent is greater than 50% in coordination of care (as documented) at patient's floor/unit and/or counseling patient: - Narrative A/P Narrative: 74-year-old male with history of advanced dementia presents unresponsive. Encephalopathy. Improving. Suspected secondary to opioids as well as benzodiazepines (Ativan). Also had risperidone started recently. Appears to be close to baseline. Plan: Avoid sedating medications. Continue to hold benzodiazepines and opioids. Prior olanzapine and more recent Risperdal have been stopped. Alzheimer's dementia: Has been on olanzapine in the recent past as well as Depakote. Olanzapine/risperidone recently d/c'd outpt Plan: Continue home Depakote and Aricept. Awaiting placement. Volume depletion: improved/resolved Plan: Nothing further Rhabdomyolysis. Mild, present on admission. Improved/resolved. Off of IV fluids. Plan: Nothing further Hyperkalemia. Have been repleted as needed. Plan: Recheck lites tomorrow Anxiety. Appears stable. Plan: Continue Depakote Chronic pain. Does not seem to be in significant pain. Off of any opioids, which have been started recently. Plan: Continue to monitor Cellulitis of the right foot: Currently on doxycycline, finish Prophylaxis: Lovenox Medical - PN: Qual - VTE Deep Vein Thrombosis/Pulmonary Embolism Present on Admission: No
[2019-06-26 20:07] LABS: Opiate Confirmation POSITIVE (N)
[2019-06-26] MEDS: DONEPEZIL 10 MG TABLET PO SCH (20:17)
[2019-06-27 07:42] LABS: Blood Urea Nitrogen 20 mg/dl (8-23); Calcium 9.3 mg/dl (8.6-10.4); Carbon Dioxide 27 mmol/L (22-30); Chloride 99 mmol/L (96-108); Glomerular Filtration Rate 87; Glucose 136 mg/dL (70-105)
[2019-06-27] MEDS: ENOXAPARIN 40 MG/0.4 ML SYRINGE SQ SCH (08:57)
[2019-06-27] MEDS: DIVALPROEX 125 MG CAP.SPRINK PO SCH ×3 (08:57→20:34)
[2019-06-27] MEDS: DOCUSATE SODIUM 100 MG CAPSULE PO SCH ×3 (08:57→20:34)
[2019-06-27] MEDS: FAMOTIDINE 20 MG TABLET PO SCH ×2 (08:57→20:34)
--- NOTE | 2019-06-27 12:51 | Internal Med Progress Note ---
Medical - PN: Subj Patient information: Note initiated : 06/27/19 at 12:49 pm Service Date, if different from initiated Date: [] Patient: Raad Gonsalez 74 y/o M admitted on 06/21/19 for Reduced LOC. Chief Complaint: Follow-up encephalopathy, dementia Interval history: 06/21 Mr. Gonsalez is a 74 year old M Presents the ED with altered mental status. Sent in from [facility]. History is obtained from charts and staff as patient is unable to give any history given his current state and superimposed Alzheimer's dementia. Per notes patient has been declining for 3 weeks at poor mental status. Is currently getting doxycycline for cellulitis of the dorsum of his right foot. Medical records he is an elopement risk and normally walks.. He was maintaining airway and his vital signs are stable. He is given several dose of Narcan. The initial 0.2 mg dose did not do much but the subsequent 4.4 mg did work well. Work-up in the ED showed a BUN 40 with creatinine 1.1 and elevated CK 1500 with urinalysis showing ketones. He was seen at [facility] on the for confusion and agitation. Work-up was unremarkable. The provider did want to obtain an MRI but was concerned given the patient's agitation whether or not he would hold still. The case was discussed with the power of admitted attorneys who did not wish to sedate the patient for MRI. It was presented to the power of admitted attorneys that if this was a stroke that he would likely have a poor outcome. The power of admitted attorneys what was aware of this and he did not want any aggressive measures. Patient was given a prescription for risperidone and Ativan both which are new medications. The medication list that he presented with showed olanzapine and oxycodone as well as Depakote. In the ED D became more responsive but unable to communicate with the patient. Therefore unable to gather a review of systems. No pressure ulcers noted. 06/22 Patient impulsive at times but otherwise no events overnight. Patient nonverbal. When I go in the room with her talking to me occasionally say yes and few other words but they are not usually an accurate response to my questions or conversation. 06/23 Patient had no issues overnight. Did need assistance with meals. 06/24 Again no overnight events. Occasionally impulsive but otherwise cooperative. 06/25 Difficult to directed times. Still impulsive occasionally quite a bit of as sistance to get on the toilet/commode. Unable to obtain review of systems given advanced dementia 06/26 Up ambulating with nursing staff. Generally nonverbal, did say thank you when he came back from a walk this afternoon. Still requiring supervision's is impulsive and requires assistance to get up from bed. Awaiting placement on Sunday. 06/27 Slept for several hours last night. Has been up walking with staff. More conversant this morning. Awaiting lunch without specific complaints. Still requires supervision and remains impulsive. Continue to anticipate placement in [facility] on Sunday. - Constitutional Vitals: Vital Signs Temp Pulse Resp BP Pulse Ox 98.4 F 94 H 18 140/75 98 06/27/19 11:19 06/27/19 11:19 06/27/19 11:19 06/27/19 11:19 06/27/19 11:19 Period Temp Pulse Resp BP Sys/Saldana Pulse Ox Last 24 Hr 97.6 F-99.0 F 75-94 16-20 116-146/66-82 95-99 Intake and Output 06/26/19 06/27/19 06/27/19 21:59 05:59 13:59 Intake Total 50 1440 1050 Output Total 2 3 402 Balance 48 1437 648 Weight 227 lb 8 oz Intake & Output: Intake & Output 06/26/19 06/27/19 06/27/19 21:59 05:59 13:59 Intake Total 50 1440 1050 Output Total 2 3 402 Balance 48 1437 648 Weight 227 lb 8 oz Intake: Oral 50 1440 1050 Output: Void Amount 400 # of times incontinent of urine 2 3 2 Other: Meal Dinner Lunch Percent of Meal Consumed 50% 50% Feeding Ability Total Assistance Needs Supervision Urine Appearance Clear Urine Color Straw Urine Odor Normal Stool Size Smear Smear Moderate Stool Color Brown Brown Brown Stool Consistency Soft Soft Formed # of times incontinent of 1 1 Bowels Exam: General: Sitting up edge of bed no acute distress Chest: Clear Cardiovascular: Regular, no edema Abdomen: Soft Neuro: Alert, oriented to self, more verbal today. Ambulating with assistance. Needs redirection. Medical - PN: Obj Da - Labs CBC & Chem 7: 06/22/19 04:36 06/27/19 06:05 Labs: Abnormal Lab Results 06/27/19 06:05 Glucose 136 H Meds: Medications Acetaminophen (Tylenol) 650 mg PO Q6HP PRN PRN Reason: PAIN/FEVER > 101 Last Admin: 06/23/19 17:29 Dose: 650 mg Documented by: Albuterol/Ipratropium (Duoneb) 3 ml NEB Q4HP PRN PRN Reason: Shortness Of Breath Bisacodyl (Dulcolax) 10 mg [place] DAILYP PRN PRN Reason: Constipation Divalproex Sodium (Depakote Sprinkles) 500 mg PO TID [facility] Last Admin: 06/27/19 08:57 Dose: 500 mg Documented by: Docusate Sodium (Colace) 100 mg PO BID [facility] Last Admin: 06/27/19 09:03 Dose: Not Given Documented by: Donepezil HCl (Aricept) 5 mg PO HS [facility] Last Admin: 06/26/19 20:17 Dose: 5 mg Documented by: Enoxaparin Sodium (Lovenox) 40 mg SQ DAILY [facility] Last Admin: 06/27/19 08:57 Dose: 40 mg Documented by: Famotidine (Pepcid) 20 mg PO BID [facility] Last Admin: 06/27/19 08:57 Dose: 20 mg Documented by: Potassium Chloride 40 meq/ (Dextrose) 520 mls @ 130 mls/hr IV UD PRN PRN Reason: Potassium < 3 Magnesium Sulfate (Magnesium Sulfate) 2 gm in 50 mls @ 50 mls/hr IV UD PRN PRN Reason: Magnesium </= 1.6 Lactulose (Cephulac) 10 gm PO DAILYP PRN PRN Reason: Constipation Last Admin: 06/24/19 09:17 Dose: 10 gm Documented by: Metoclopramide HCl (Reglan) 10 mg IV Q6HP PRN PRN Reason: Nausea And Vomiting Naloxone HCl (Narcan) 0.1 mg IV Q2MIN PRN PRN Reason: Opiate Reversal Ondansetron HCl (Zofran) 4 mg IV Q4HP PRN PRN Reason: Nausea And Vomiting Polyethylene Glycol (Miralax) 17 gm PO DAILYP PRN PRN Reason: Constipation Last Admin: 06/26/19 08:56 Dose: 17 gm Documented by: Potassium Chloride (Kdur) 40 meq PO UD PRN PRN Reason: Potssium is 3-3.5 Last Admin: 06/26/19 11:30 Dose: 40 meq Documented by: Potassium Chloride (Kdur) 40 meq PO UD PRN PRN Reason: Potassium < 3 Promethazine HCl (Phenergan) 0 mg PO Q6HP PRN PRN Reason: Nausea And Vomiting Senna (Senokot) 2 tab PO HSP PRN PRN Reason: Constipation Trazodone HCl (Desyrel) 50 mg PO HSP PRN PRN Reason: Insomnia Medical - PN: A/P - Time Spent With Patient Total time spent is greater than 50% in coordination of care (as documented) at patient's floor/unit and/or counseling patient: 25 - 35 minutes - Narrative A/P Narrative: 74-year-old male with history of advanced dementia presents unresponsive. Encephalopathy. Improving/resolved. Suspected secondary to opioids as well as benzodiazepines (Ativan). Also had risperidone started recently. Appears to be close to baseline. Plan: Avoid sedating medications. Continue to hold benzodiazepines and opioids. Prior olanzapine and more recent Risperdal have been stopped. Alzheimer's dementia: Has been on olanzapine in the recent past as well as Depakote. Olanzapine/risperidone recently d/c'd outpt. Trazodone was at home med for sleep. Plan: Continue home Depakote and Aricept. Resume as needed trazodone at bedtime for sleep. Awaiting placement. Volume depletion: improved/resolved Plan: Nothing further Rhabdomyolysis. Mild, present on admission. Improved/resolved. Off of IV fluids. Plan: Nothing further Hyperkalemia. Have been repleted as needed. Electrolytes normal 06/27. Plan: Monitor as needed Anxiety. Appears stable. Plan: Continue Depakote Chronic pain. Does not seem to be in significant pain. Off of any opioids, which have been started recently. Plan: Continue to monitor Cellulitis of the right foot: Currently on doxycycline, finish Prophylaxis: Lovenox Medical - PN: Qual - VTE Deep Vein Thrombosis/Pulmonary Embolism Present on Admission: No
[2019-06-27] MEDS: DONEPEZIL 10 MG TABLET PO SCH (20:34)
[2019-06-27] MEDS: traZODone HCL 50 MG TABLET PO PRN (22:27)
[2019-06-28] MEDS: DIVALPROEX 125 MG CAP.SPRINK PO SCH ×3 (08:27→20:49)
[2019-06-28] MEDS: FAMOTIDINE 20 MG TABLET PO SCH ×2 (08:28→20:48)
[2019-06-28] MEDS: ENOXAPARIN 40 MG/0.4 ML SYRINGE SQ SCH (08:28)
[2019-06-28] MEDS: DOCUSATE SODIUM 100 MG CAPSULE PO SCH ×2 (08:28→20:48)
--- NOTE | 2019-06-28 09:09 | Internal Med Progress Note ---
Medical - PN: Subj Patient information: Note initiated : 06/28/19 at 9:07 am Service Date, if different from initiated Date: [] Patient: Raad Gonsalez 74 y/o M admitted on 06/21/19 for Reduced LOC. Chief Complaint: f/u encephalopathy Interval history: 06/21 Mr. Gonsalez is a 74 year old M Presents the ED with altered mental status. Sent in from [facility]. History is obtained from charts and staff as patient is unable to give any history given his current state and superimposed Alzheimer's dementia. Per notes patient has been declining for 3 weeks at poor mental status. Is currently getting doxycycline for cellulitis of the dorsum of his right foot. Medical records he is an elopement risk and normally walks.. He was maintaining airway and his vital signs are stable. He is given several dose of Narcan. The initial 0.2 mg dose did not do much but the subsequent 4.4 mg did work well. Work-up in the ED showed a BUN 40 with creatinine 1.1 and elevated CK 1500 with urinalysis showing ketones. He was seen at [facility] on the for confusion and agitation. Work-up was unremarkable. The provider did want to obtain an MRI but was concerned given the patient's agitation whether or not he would hold still. The case was discussed with the power of managing attorney who did not wish to sedate the patient for MRI. It was presented to the power of managing attorney that if this was a stroke that he would likely have a poor outcome. The power of managing attorney what was aware of this and he did not want any aggressive measures. Patient was given a prescription for risperidone and Ativan both which are new medications. The medication list that he presented with showed olanzapine and oxycodone as well as Depakote. In the ED D became more responsive but unable to communicate with the patient. Therefore unable to gather a review of systems. No pressure ulcers noted. 06/22 Patient impulsive at times but otherwise no events overnight. Patient nonverbal. When I go in the room with her talking to me occasionally say yes and few other words but they are not usually an accurate response to my questions or conversation. 06/23 Patient had no issues overnight. Did need assistance with meals. 06/24 Again no overnight events. Occasionally impulsive but otherwise cooperative. 06/25 Difficult to directed times. Still impulsive occasionally quite a bit of assistance to get on the toilet/commode. Unable to obtain review of systems given advanced dementia 06/26 Up ambulating with nursing staff. Generally nonverbal, did say thank you when he came back from a walk this afternoon. Still requiring supervision's is impulsive and requires assistance to get up from bed. Awaiting placement on Sunday. 06/27 Slept for several hours last night. Has been up walking with staff. More conversant this morning. Awaiting lunch without specific complaints. Still requires supervision and remains impulsive. Continue to anticipate placement in [place] at [facility] on Sunday. 06/28 Quiet day yesterday. Ambulating with nursing. Appetite is good. Remains conversant, though conversation meanders. - Constitutional Vitals: Vital Signs Temp Pulse Resp BP Pulse Ox 98.3 F 78 18 132/86 98 06/28/19 07:00 06/28/19 07:00 06/28/19 07:00 06/28/19 07:00 06/28/19 07:00 Period Temp Pulse Resp BP Sys/Saldana Pulse Ox Last 24 Hr 97.9 F-98.4 F 66-94 18-20 99-140/64-86 98-99 Intake and Output 06/27/19 06/28/19 06/28/19 21:59 05:59 13:59 Intake Total 840 360 Output Total 3 5 1 Balance 837 355 -1 Weight 225 lb 11.2 oz Intake & Output: Intake & Output 06/27/19 06/28/19 06/28/19 21:59 05:59 13:59 Intake Total 840 360 Output Total 3 5 1 Balance 837 355 -1 Weight 225 lb 11.2 oz Intake: Oral 840 360 Output: # of times incontinent of urine 3 5 1 Other: Meal Dinner Percent of Meal Consumed 75% Feeding Ability Total Assistance Urine Appearance Clear Urine Color Dark Yellow Stool Size Moderate Smear Stool Color Brown Brown Stool Consistency Soft Formed # of times incontinent of 1 1 Bowels Exam: General: Sitting in bed no acute distress Chest: Clear, unlabored Cardiovascular: Regular Abdomen: Soft Neuro: Alert, disoriented. Ambulating with assistance, using gait belt. Medical - PN: Obj Da - Labs CBC & Chem 7: 06/22/19 04:36 06/27/19 06:05 Labs: Abnormal Lab Results 06/27/19 06:05 Glucose 136 H Meds: Medications Acetaminophen (Tylenol) 650 mg PO Q6HP PRN PRN Reason: PAIN/FEVER > 101 Last Admin: 06/23/19 17:29 Dose: 650 mg Documented by: Albuterol/Ipratropium (Duoneb) 3 ml NEB Q4HP PRN PRN Reason: Shortness Of Breath Bisacodyl (Dulcolax) 10 mg [place] DAILYP PRN PRN Reason: Constipation Divalproex Sodium (Depakote Sprinkles) 500 mg PO TID [facility] Last Admin: 06/28/19 08:27 Dose: 500 mg Documented by: Docusate Sodium (Colace) 100 mg PO BID [facility] Last Admin: 06/28/19 08:28 Dose: Not Given Documented by: Donepezil HCl (Aricept) 5 mg PO HS [facility] Last Admin: 06/27/19 20:34 Dose: 5 mg Documented by: Enoxaparin Sodium (Lovenox) 40 mg SQ DAILY [facility] Last Admin: 06/28/19 08:28 Dose: 40 mg Documented by: Famotidine (Pepcid) 20 mg PO BID [facility] Last Admin: 06/28/19 08:28 Dose: 20 mg Documented by: Potassium Chloride 40 meq/ (Dextrose) 520 mls @ 130 mls/hr IV UD PRN PRN Reason: Potassium < 3 Magnesium Sulfate (Magnesium Sulfate) 2 gm in 50 mls @ 50 mls/hr IV UD PRN PRN Reason: Magnesium </= 1.6 Lactulose (Cephulac) 10 gm PO DAILYP PRN PRN Reason: Constipation Last Admin: 06/24/19 09:17 Dose: 10 gm Documented by: Metoclopramide HCl (Reglan) 10 mg IV Q6HP PRN PRN Reason: Nausea And Vomiting Naloxone HCl (Narcan) 0.1 mg IV Q2MIN PRN PRN Reason: Opiate Reversal Ondansetron HCl (Zofran) 4 mg IV Q4HP PRN PRN Reason: Nausea And Vomiting Polyethylene Glycol (Miralax) 17 gm PO DAILYP PRN PRN Reason: Constipation Last Admin: 06/26/19 08:56 Dose: 17 gm Documented by: Potassium Chloride (Kdur) 40 meq PO UD PRN PRN Reason: Potssium is 3-3.5 Last Admin: 06/26/19 11:30 Dose: 40 meq Documented by: Potassium Chloride (Kdur) 40 meq PO UD PRN PRN Reason: Potassium < 3 Promethazine HCl (Phenergan) 0 mg PO Q6HP PRN PRN Reason: Nausea And Vomiting Senna (Senokot) 2 tab PO HSP PRN PRN Reason: Constipation Trazodone HCl (Desyrel) 50 mg PO HSP PRN PRN Reason: Insomnia Last Admin: 06/27/19 22:27 Dose: 50 mg Documented by: Medical - PN: A/P - Time Spent With Patient Total time spent is greater than 50% in coordination of care (as documented) at patient's floor/unit and/or counseling patient: 25 - 35 minutes - Narrative A/P Narrative: 74-year-old male with history of advanced dementia presents unresponsive. Encephalopathy. Improving/resolved. Suspected secondary to opioids as well as benzodiazepines (Ativan). Also had risperidone started recently. Appears to be close to baseline. Plan: Avoid sedating medications. Continue to hold benzodiazepines and opioids. Prior olanzapine and more recent Risperdal have been stopped. Alzheimer's dementia: Has been on olanzapine in the recent past as well as Depakote. Olanzapine/risperidone recently d/c'd outpt. Trazodone was at home med for sleep. Plan: Continue home Depakote and Aricept. Resumed PRN trazodone at bedtime for sleep. Awaiting placement, scheduled for Sunday. Volume depletion: improved/resolved. Taking good p.o. Plan: Nothing further Rhabdomyolysis. Mild, present on admission. Improved/resolved. Off of IV fluids. Plan: Nothing further Hyperkalemia. Have been repleted as needed. Electrolytes normal 06/27. Plan: Monitor as needed Anxiety. Appears stable. Plan: Continue Depakote Chronic pain. Does not seem to be in significant pain. Off of any opioids, which have been started recently. Plan: Continue to monitor Cellulitis of the right foot: Currently on doxycycline, finish Prophylaxis: Lovenox Medical - PN: Qual - VTE Deep Vein Thrombosis/Pulmonary Embolism Present on Admission: No
[2019-06-28] MEDS: traZODone HCL 50 MG TABLET PO PRN (20:46)
[2019-06-28] MEDS: DONEPEZIL 10 MG TABLET PO SCH (20:46)
--- NOTE | 2019-06-29 07:54 | Internal Med Progress Note ---
Medical - PN: Subj Patient information: Note initiated : 06/29/19 at 7:52 am Service Date, if different from initiated Date: [] Patient: Raad Gonsalez 74 y/o M admitted on 06/21/19 for Reduced LOC. Chief Complaint: Follow-up encephalopathy Interval history: 06/21 Mr. Gonsalez is a 74 year old M Presents the ED with altered mental status. Sent in from [facility]. History is obtained from charts and staff as patient is unable to give any history given his current state and superimposed Alzheimer's dementia. Per notes patient has been declining for 3 weeks at poor mental status. Is currently getting doxycycline for cellulitis of the dorsum of his right foot. Medical records he is an elopement risk and normally walks.. He was maintaining airway and his vital signs are stable. He is given several dose of Narcan. The initial 0.2 mg dose did not do much but the subsequent 4.4 mg did work well. Work-up in the ED showed a BUN 40 with creatinine 1.1 and elevated CK 1500 with urinalysis showing ketones. He was seen at [facility] on the for confusion and agitation. Work-up was unremarkable. The provider did want to obtain an MRI but was concerned given the patient's agitation whether or not he would hold still. The case was discussed with the power of assistant attorney general who did not wish to sedate the patient for MRI. It was presented to the power of assistant attorney general that if this was a stroke that he would likely have a poor outcome. The power of assistant attorney general what was aware of this and he did not want any aggressive measures. Patient was given a prescription for risperidone and Ativan both which are new medications. The medication list that he presented with showed olanzapine and oxycodone as well as Depakote. In the ED D became more responsive but unable to communicate with the patient. Therefore unable to gather a review of systems. No pressure ulcers noted. 06/22 Patient impulsive at times but otherwise no events overnight. Patient nonverbal. When I go in the room with her talking to me occasionally say yes and few other words but they are not usually an accurate response to my questions or conversation. 06/23 Patient had no issues overnight. Did need assistance with meals. 06/24 Again no overnight events. Occasionally impulsive but otherwise cooperative. 06/25 Difficult to directed times. Still impulsive occasionally quite a bit of assistance to get on the toilet/commode. Unable to obtain review of systems given advanced dementia 06/26 Up ambulating with nursing staff. Generally nonverbal, did say thank you when he came back from a walk this afternoon. Still requiring supervision's is impulsive and requires assistance to get up from bed. Awaiting placement on Sunday. 06/27 Slept for several hours last night. Has been up walking with staff. More conversant this morning. Awaiting lunch without specific complaints. Still requires supervision and remains impulsive. Continue to anticipate placement in [place] at [facility] on Sunday. 06/28 Quiet day yesterday. Ambulating with nursing. Appetite is good. Remains conversant, though conversation meanders. 06/29 Remains stable. No new events. Continues to ambulate with nursing in the halls. Not conversant today. - Constitutional Vitals: Vital Signs Temp Pulse Resp BP Pulse Ox 98.1 F 76 20 130/77 97 06/29/19 07:43 06/29/19 05:00 06/29/19 07:43 06/29/19 07:43 06/29/19 07:43 Period Temp Pulse Resp BP Sys/Saldana Pulse Ox Last 24 Hr 97.8 F-98.1 F 76-88 16-20 109-137/62-77 96-97 Intake and Output 06/28/19 06/29/19 06/29/19 22:59 05:59 13:59 Intake Total Output Total Balance Weight Intake & Output: Intake & Output 06/28/19 06/29/19 06/29/19 22:59 05:59 13:59 Intake Total Output Total Balance Weight Intake: Nourishment/Supplement quantity (ml) Oral Output: Void Amount # of times incontinent of urine Other: Meal Percent of Meal Consumed Nourishment/Supplement name Stool Size Stool Color Stool Consistency # Bowel Movements Exam: General lying in bed, tracks but does not respond Chest: Clear to auscultation anteriorly Cardiovascular: Regular Abdomen: Soft Neuro: Ambulating with standby assist. Not responding to questions this morning. Medical - PN: Obj Da - Labs CBC & Chem 7: 06/22/19 04:36 06/27/19 06:05 Labs: Abnormal Lab Results 06/27/19 06:05 Glucose 136 H Meds: Medications Acetaminophen (Tylenol) 650 mg PO Q6HP PRN PRN Reason: PAIN/FEVER > 101 Last Admin: 06/23/19 17:29 Dose: 650 mg Documented by: Albuterol/Ipratropium (Duoneb) 3 ml NEB Q4HP PRN PRN Reason: Shortness Of Breath Bisacodyl (Dulcolax) 10 mg WA DAILYP PRN PRN Reason: Constipation Divalproex Sodium (Depakote Sprinkles) 500 mg PO TID [facility] Last Admin: 06/28/19 20:49 Dose: 500 mg Documented by: Docusate Sodium (Colace) 100 mg PO BID [facility] Last Admin: 06/28/19 20:48 Dose: Not Given Documented by: Donepezil HCl (Aricept) 5 mg PO HS [facility] Last Admin: 06/28/19 20:46 Dose: 5 mg Documented by: Enoxaparin Sodium (Lovenox) 40 mg SQ DAILY [facility] Last Admin: 06/28/19 08:28 Dose: 40 mg Documented by: Famotidine (Pepcid) 20 mg PO BID [facility] Last Admin: 06/28/19 20:48 Dose: 20 mg Documented by: Potassium Chloride 40 meq/ (Dextrose) 520 mls @ 130 mls/hr IV UD PRN PRN Reason: Potassium < 3 Magnesium Sulfate (Magnesium Sulfate) 2 gm in 50 mls @ 50 mls/hr IV UD PRN PRN Reason: Magnesium </= 1.6 Lactulose (Cephulac) 10 gm PO DAILYP PRN PRN Reason: Constipation Last Admin: 06/24/19 09:17 Dose: 10 gm Documented by: Metoclopramide HCl (Reglan) 10 mg IV Q6HP PRN PRN Reason: Nausea And Vomiting Naloxone HCl (Narcan) 0.1 mg IV Q2MIN PRN PRN Reason: Opiate Reversal Ondansetron HCl (Zofran) 4 mg IV Q4HP PRN PRN Reason: Nausea And Vomiting Polyethylene Glycol (Miralax) 17 gm PO DAILYP PRN PRN Reason: Constipation Last Admin: 06/26/19 08:56 Dose: 17 gm Documented by: Potassium Chloride (Kdur) 40 meq PO UD PRN PRN Reason: Potssium is 3-3.5 Last Admin: 06/26/19 11:30 Dose: 40 meq Documented by: Potassium Chloride (Kdur) 40 meq PO UD PRN PRN Reason: Potassium < 3 Promethazine HCl (Phenergan) 0 mg PO Q6HP PRN PRN Reason: Nausea And Vomiting Senna (Senokot) 2 tab PO HSP PRN PRN Reason: Constipation Trazodone HCl (Desyrel) 50 mg PO HSP PRN PRN Reason: Insomnia Last Admin: 06/28/19 20:46 Dose: 50 mg Documented by: Medical - PN: A/P - Narrative A/P Narrative: 74-year-old male with history of advanced dementia presents unresponsive. Encephalopathy. Resolved. Suspected secondary to opioids as well as benzodiazepines (Ativan). Also had risperidone started recently. Appears to be close to baseline. Plan: Avoid sedating medications. Continue to hold benzodiazepines and opioids. Prior olanzapine and more recent Risperdal have been stopped. Alzheimer's dementia: Has been on olanzapine in the recent past as well as Depakote. Olanzapine/risperidone recently d/c'd outpt. Trazodone was at home med for sleep. Plan: Continue home Depakote and Aricept. Resumed PRN trazodone at bedtime for sleep. Awaiting placement, scheduled for Sunday. Volume depletion: improved/resolved. Taking good p.o. Plan: Nothing further Rhabdomyolysis. Mild, present on admission. Improved/resolved. Off of IV fluids. Plan: Nothing further Hypokalemia. Has been repleted as needed. Electrolytes normal 06/27. Plan: Monitor as needed Anxiety. Appears stable. Plan: Continue Depakote Chronic pain. Does not seem to be in significant pain. Off of any opioids, which have been started recently. Plan: Continue to monitor Cellulitis of the right foot: Was on doxycycline, finished course Prophylaxis: Lovenox Medical - PN: Qual - VTE Deep Vein Thrombosis/Pulmonary Embolism Present on Admission: No
[2019-06-29] MEDS: DOCUSATE SODIUM 100 MG CAPSULE PO SCH ×2 (10:04→20:47)
[2019-06-29] MEDS: FAMOTIDINE 20 MG TABLET PO SCH ×2 (10:05→20:46)
[2019-06-29] MEDS: DIVALPROEX 125 MG CAP.SPRINK PO SCH ×3 (10:05→20:46)
[2019-06-29] MEDS: ENOXAPARIN 40 MG/0.4 ML SYRINGE SQ SCH (10:06)
--- NOTE | 2019-06-29 13:34 | Discharge Summary ---
Medical - DS: Prov Patient information: Note initiated : 06/29/19 at 1:32 pm Service Date, if different from initiated Date: [] Patient: Raad Gonsalez 74 y/o M admitted on 06/21/19 for Reduced LOC. Chief Complaint: [] Date of admission: 06/21/19 16:33 Discharge date: 06/30/19 Primary care physician: CLAYTON Gray Consults: 06/21/19 Consult to Physician [CONS] Stat Comment: Consulting Provider: Los Wallace Reason For Exam: Physician to Consult Medical - DS: Meds - Discharge Medications Prescriptions: oxyCODONE HCL [Oxycodone HCl] 2.5 mg PO BID PRN #10 tab PRN Reason: Pain Prescription Printed Active and Home Medications: Home Medications Acetaminophen [Non-Aspirin] 650 mg PO Q4HP PRN 06/21/19 [History Confirmed 06/21/19 Last Taken Unknown] Bisacodyl 10 mg RC PRN PRN 06/21/19 [History Confirmed 06/21/19 Last Taken Unknown] Divalproex Sodium [Depakote] 500 mg PO TID 06/21/19 [History Confirmed 06/21/19 Last Taken Unknown] Docusate Sodium [Colace] 100 mg PO BID 06/21/19 [History Confirmed 06/21/19 Last Taken Unknown] Docusate Sodium [Colace] 100 mg PO DAILYP PRN 06/21/19 [History Confirmed 06/21/19 Last Taken Unknown] Donepezil [Aricept] 5 mg PO HS 06/21/19 [History Confirmed 06/21/19 Last Taken Unknown] Magnesium Hydroxide [Milk of Magnesia] 30 ml PO DAILYP PRN 06/21/19 [History Confirmed 06/21/19 Last Taken Unknown] Multivitamin,Therapeutic [Thera] 1 tab PO DAILY 06/21/19 [History Confirmed 06/21/19 Last Taken Unknown] traZODone HCL [Trazodone HCl] 50 mg PO HS 06/21/19 [History Confirmed 06/21/19 Last Taken Unknown] oxyCODONE HCL [Oxycodone HCl] 2.5 mg PO BID PRN #10 tab 06/22/19 [Rx Last Taken Unknown] Medical - DS: Hosp Hospital Course: Mr. Gonsalez is a 74 year old M Presents the ED with altered mental status. Sent in from [facility]. History is obtained from charts and staff as patient is unable to give any history given his current state and superimposed Alzheimer's dementia. Per notes patient has been declining for 3 weeks at poor mental status. Is currently getting doxycycline for cellulitis of the dorsum of his right foot. Medical records he is an elopement risk and normally walks.. He was maintaining airway and his vital signs are stable. He is given several dose of Narcan. The initial 0.2 mg dose did not do much but the subsequent 4.4 mg did work well. Work-up in the ED showed a BUN 40 with creatinine 1.1 and elevated CK 1500 with urinalysis showing ketones. He was seen at [facility] on the for confusion and agitation. Work-up was unremarkable. The provider did want to obtain an MRI but was concerned given the patient's agitation whether or not he would hold still. The case was discussed with the power of commercial real estate attorney who did not wish to sedate the patient for MRI. It was presented to the power of commercial real estate attorney that if this was a stroke that he would likely have a poor outcome. The power of commercial real estate attorney what was aware of this and he did not want any aggressive measures. Patient was given a prescription for risperidone and Ativan both which are new medications. The medication list that he presented with showed olanzapine and oxycodone as well as Depakote. In the ED D became more responsive but unable to communicate with the patient. Therefore unable to gather a review of systems. No pressure ulcers noted. 06/22 Patient impulsive at times but otherwise no events overnight. Patient nonverbal. When I go in the room with her talking to me occasionally say yes and few other words but they are not usually an accurate response to my questions or conversation. 06/23 Patient had no issues overnight. Did need assistance with meals. 06/24 Again no overnight events. Occasionally impulsive but otherwise cooperative. 06/25 Difficult to directed times. Still impulsive occasionally quite a bit of assistance to get on the toilet/commode. Unable to obtain review of systems given advanced dementia 06/26 Up ambulating with nursing staff. Generally nonverbal, did say thank you when he came back from a walk this afternoon. Still requiring supervision's is impulsive and requires assistance to get up from bed. Awaiting placement on Sunday. 06/27 Slept for several hours last night. Has been up walking with staff. More conversant this morning. Awaiting lunch without specific complaints. Still requires supervision and remains impulsive. Continue to anticipate placement in [place] at [facility] on Sunday. 06/28 Quiet day yesterday. Ambulating with nursing. Appetite is good. Remains conversant, though conversation meanders. 06/29 Remains stable. No new events. Continues to ambulate with nursing in the halls. Not conversant today. 06/30 No overnight events. No new complaints. Patient doing well. Stable for discharge Discharge diagnosis: Encephalopathy acute on superimposed dementia likely from benzodiazepines a Secondary discharge diagnosis: And opioids. Alzheimer's dementia volume depletion rhabdomyolysis hypokalemia anxiety chronic pain - Time Spent with Patient Total time spent providing and/or coordinating discharge services: Greater than 30 minutes Medical - DS: Exam - Constitutional Vitals: Vital Signs Temp Pulse Resp BP Pulse Ox 06/29/19 07:43 98.1 F 20 130/77 97 06/29/19 05:00 98 F 76 124/70 96 06/29/19 04:46 16 06/28/19 23:00 16 06/28/19 19:00 98.1 F 80 18 110/62 96 06/28/19 15:00 97.8 F 78 16 137/69 97 Intake and Output 06/28/19 06/29/19 06/29/19 22:59 05:59 13:59 Intake Total Output Total Balance Intake: Nourishment/Supplement quantity (ml) Oral Output: Void Amount # of times incontinent of urine Other: Meal Percent of Meal Consumed Nourishment/Supplement name Stool Size Stool Color Stool Consistency # Bowel Movements Weight Medical - DS: A/P - Patient/Caregiver Discharge Instructions Activity: as per physical therapy Diet: Dysphagia Level 7 Easy to Chew Foods Additional Instructions: Activity as per physical therapy. Dysphagia Level 7 Easy to Chew Foods. Prescriptions: oxyCODONE HCL [Oxycodone HCl] 2.5 mg PO BID PRN #10 tab PRN Reason: Pain Prescription Printed Other Amb Orders: OT Discharge Order Location: None Selected Physical Therapy at Discharge - General Location: None Selected ST Discharge Order Location: None Selected - Follow up Plan Follow up with: Margret Wright MD [Physician] - (PCP follow up. Please schedule to fit your transportation needs. ) Leonidas Day DPM [Physician] - (Follow up at podiatry clinic after discharge if right great toenail and toe do not continue to heal.) Disposition: Xfer SNF Prognosis: Undetermined Rehab Potential: Fair I certify that the patient requires SNF services: Yes Overall status at discharge: patient is back to baseline Medical - DS: Qual - VTE Deep Vein Thrombosis/Pulmonary Embolism Present on Admission: No
[2019-06-29] MEDS: DONEPEZIL 10 MG TABLET PO SCH (20:46)
[2019-06-29] MEDS: traZODone HCL 50 MG TABLET PO PRN (20:46)
[2019-06-30] MEDS: DOCUSATE SODIUM 100 MG CAPSULE PO SCH (08:46)
[2019-06-30] MEDS: ENOXAPARIN 40 MG/0.4 ML SYRINGE SQ SCH (08:46)
[2019-06-30] MEDS: FAMOTIDINE 20 MG TABLET PO SCH (08:50)
[2019-06-30] MEDS: DIVALPROEX 125 MG CAP.SPRINK PO SCH (10:10)
== END 2019-06-30 09:15 | DRG 92 ==
LOC: ED 12:28 → MEDSUR 16:33
PROVIDERS: ADMIT Internal Medicine; ATTEND Internal Medicine